=== PATIENT | female | born 1940 | race Caucasian/White ===

== ENCOUNTER 2018-06-19 12:59 | Outpatient (CLI) | payer MEDICARE, OTHER | END 2018-06-19 13:00 | disposition home or self-care (01) | LOC: PC 12:59 | PROVIDERS: ATTEND Nurse Practitioner Adult Health | DX: Z51.5 Encounter for palliative care (principal); G89.3 Neoplasm related pain (acute) (chronic); R53.1 Weakness; C79.2 Secondary malignant neoplasm of skin; C79.82 Secondary malignant neoplasm of genital organs; C68.0 Malignant neoplasm of urethra; Z79.899 Other long term (current) drug therapy; Z79.891 Long term (current) use of opiate analgesic | CPT/HCPCS: 99205 ==

== ENCOUNTER 2018-06-26 12:27 | Outpatient (CLI) | payer MEDICARE, OTHER ==
--- NOTE | 2018-06-26 19:57 | CONSULTATION NOTE ---
Palliative Care Follow Up - Referral Referring Provider: Dr. 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 She is currently receiving pembrolizumab, has recently transitioned [facility] to [facility]. Her original diagnosis was in 07/2014 and was treated at [facility] with surgery 08/24/2014 with anterior extenteration to include ovaries, uterus, fallopian tubes, cervix, bladder and attached urethra. She has a ileal conduit diversion. This was followed by post chemoradiation. She had recurrent disease in her inguinal nodes in 2017, with another round of concurrent chemoradiation. She most recently and [id number] had a focal area of concern on the CT scan, this is resected by Dr. peña, but was negative for cancer. Now she presents yet again with recurrent disease localized in the symphysis pubis area, a large open moist lesion draining at the bridge, she also has tumor invasion of her vulvar and labia. Palliative care seeing patient for pain management, pain is mostly localized into the pubic area, recently started on fentanyl 12 mcg patch, with some improvement of functional status as far as being able to sit move get from sitting to standing. She currently takes oxycodone 5 mg a.m., noon, and 10 at bedtime. Currently feels regimen is adequate. Of note though she has had about a 5 pound weight loss over the last week, with decreased appetite. Patient does live alone, she does have some short-term memory issues, Her daughter know well oversees her care and is assisting with both appointments and reminders for medication management Social History - Living Situation Living arrangement: At home Living Situation: Alone Support System: Patient on [place] [facility] [employer], now is been there for 4 years. She does live on a large 5 acre plot, with increasing difficulty with house maintenance, has multiple financial stressors. Her daughter know well provides most of her oversight and support, patient also has a son. Medications/Allergies - Medications Home Medications: Ambulatory Orders Medication Instructions Recorded Confirmed oxyCODONE [Roxicodone] 1 - 2 tab PO Q4HR PRN 05/15/18 06/26/18 fentaNYL [Fentanyl 12mcg patch] 12 mcg TOP .Q3 DAYS 06/22/18 06/26/18 - Allergies Allergies/Adverse Reactions: Allergies Allergy/AdvReac Type Severity Reaction Status Date / Time Sulfa (Sulfonamide Allergy Unknown Verified 06/05/18 15:19 Antibiotics) Plastic tape Allergy Rash Uncoded 06/05/18 15:19 Review of Systems - Constitutional Constitutional: reports: Fatigue, Poor appetite, Weight loss (94.5 down from last week 100). denies: Fever - Ears, Nose & Throat Ears, Nose & Throat: denies: Dry mouth - Cardiovascular Cardiovascular: reports: Edema (right lower leg), Decr. exercise tolerance - Respiratory Respiratory: denies: Cough - Gastrointestinal Gastrointestinal: reports: Poor appetite, Early satiety. denies: Constipation, Nausea - Genitourinary Genitourinary: reports: Other (ileostomy) - Musculoskeletal Musculoskeletal: reports: Muscle weakness - Integumentary Integumentary: reports: Other (malignant tumor secondary to skin mets over pubis area) - Neurological Neurological: reports: General weakness, Memory problems - Psychiatric Psychiatric: denies: Depression, Anxiety - Hematologic/Lymphatic Hematologic/Lymphatic: denies: Recurrent infections - All Other Systems All Other Systems: reports: Reviewed and negative Physical Exam - Vital Signs Pulse Rate: 96 Respiratory Rate: 18 Blood Pressure: 122/62 (standing 112/72) - Physical Exam General Appearance: positive: No acute distress, Alert Eyes Bilateral: positive: Normal inspection ENT: positive: No signs of dehydration Neck: positive: No JVD, Trachea midline Cardiovascular: positive: Regular rate & rhythm Respiratory: positive: Diminished in bases. negative: Wheezes, Rales, Rhonchi Abdomen: positive: Soft, Other (concave) Skin: positive: Dryness, Other Extremities: positive: Pedal edema Neurologic/Psychiatric: positive: Mood/affect nml, Disoriented to time, Weakness Palliative Care - POLST Patient has POLST: No Pain: Pain improved, Location (Patient on fentanyl 12 mcg patch, with oxycodone 1-2 tabs for breakthrough pain every 4 hours as needed is using about 20 mg total and 24 hours. Patient does not notice an acute relief, but reports things are improving, daughter observes patient has had significant improvement as far as seems less distressed, less pain behaviors, and somewhat clear.) Tiredness/Fatigue: Moderate (4-6) Drowsiness/Sedation: Comment (sleeps 12 hours at night) Nausea: None Depression: None Anxiety: None Dyspnea: None Anorexia: Moderate (4-6) Constipation: No Feelings of wellbeing/Perceived Quality of Life: Fair, Acceptable Performance Status: Patient is ambulatory around her home, able to attend her ADLs and manage her own ostomy. Does admit to more fatigue, daughter does support her as far as IADLs. Patient needing more assistance with transportation. - Palliative Care Discussion: Patient presents is fairly pragmatic, does intertwine much storytelling in her answers. Very bright and conversant, do understand stage IV disease, but unclear if have recognized the seriousness of her illness. 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 Agreed would take advanced care planning documents and review, review her old document, and will put together information for future planning. Her experiences around end of life, her significant other who passed several years ago, did receive hospice support. 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 She is currently receiving immunotherapy, her disease is mainly localized in the symphysis pubis area with involvement of her vulvar and labia. Patient with some improvement in her pain management, palliative care to continue to provide support with focus on pain and quality of life issues. Recommendations/Counseling Done: 1. Pain of neoplastic origin. Patient's pain has improved, as far as decreased discomfort with sitting, able to move easier, decrease in intensity in pubic area. Will continue on 12 mcg patch, using oxycodone for breakthrough pain. Patient and daughter in agreement with this at this point in time. Will contact me if escalates. 2. Generalized weakness patient does have balance issues, has limited financial resources, has not heard from [facility] will go ahead and follow-up. 3. Malignant wound in symphysis pubis area. Consult with prescription benefit specialist, patient currently managing with disposable underwear, drainage actually is clear intermittently with some bleeding. Wound on examination act ually appears to have shrunk some as far as contours. Instructed continue with gentle cleansing, management of exudate as currently doing, if worsens will follow up with prescription benefit specialist. 4. Weight loss. Patient on immunotherapy, dexamethasone contraindicated. Patient is actually fairly surprised.Counseling provided regarding need to increase calorie intake, patient eats "organically". Reviewed some strategies, may need referral to dietitian if continue problematic. 4. Advanced care planning. Initiated conversation, will take packet evaluate current status and create documents as indicated. Time Spent: 60 minutes with getting 50% of this done in counseling regarding pain and symptom management, follow-up with resources for transportation, and anticipa tory guidance and introduction of advanced care planning.
== END 2018-06-26 12:28 | disposition home or self-care (01) ==
LOC: PC 12:27
PROVIDERS: ATTEND Nurse Practitioner Adult Health
DX: Z51.5 Encounter for palliative care (principal); G89.3 Neoplasm related pain (acute) (chronic); C68.0 Malignant neoplasm of urethra; C79.82 Secondary malignant neoplasm of genital organs; C79.2 Secondary malignant neoplasm of skin; C78.00 Secondary malignant neoplasm of unspecified lung; R53.1 Weakness; R26.89 Other abnormalities of gait and mobility; R63.4 Abnormal weight loss; Z79.899 Other long term (current) drug therapy; Z79.891 Long term (current) use of opiate analgesic
CPT/HCPCS: 99215

== ENCOUNTER 2018-07-11 10:58 | Outpatient (CLI) | payer MEDICARE, OTHER ==
--- NOTE | 2018-07-11 18:02 | CONSULTATION NOTE ---
Palliative Care Follow Up - Referral Referring Provider: Dr. Morelia Castro Time of Visit: 1377-2440 Referral setting: [facility] [place] Referral Reason: Pain of neoplastic origin/Goals of care - Information Sources Records reviewed: Previous records reviewed History/Review of Systems obtained from: Patient, Family (daughter Rick) Exam limitations: Clinical condition (patient with short term memory issues) - History of Present Illness Update Brief HPI Update: This is a 78-year-old woman who has recurrent stage IV urothelial carcinoma with skin metastases to the symphysis pubis area, labia/vaginal mass, and RUL lung lesion. Please see 06/26 note for more complete history. She is currently receiving Prembrolizumab, And is here today for treatment. We had agreed to meet at her treatment appointment to further complete her advanced directives and follow-up on her pain management. She is currently on fentanyl 12 mcg patch, her discomfort is mostly localized to her blank-region, has been taking increased oxycodone of about 25 mg in 24 hours. Trying to tease out if this is by habit, and not by need. After much discussi on, did agree given she is more clear on the fentanyl versus oxycodone, would increase her patch to 25 mcg, she will trial this by adding second 12 mcg patch. And use the oxycodone only for breakthrough pain. Her daughter will monitor this over the next few days, and if effective and not over sedating, will obtain 25 mcg patch prescription which was provided. Other concern is she has had ongoing weight loss, she currently today presents at 90.8 pounds, last week was 94.5, week before 100. She reports just no appetite, denies nausea, because of ileostomy is drinking fluids, and has difficulty identifying specific barriers to intake. She does live alone, is isolated, and with poor recall related to mild cognitive deficits. Social History - Living Situation Living arrangement: At home Living Situation: Alone Support System: Patient does live alone, her partner had passed several years ago, she does live on a large estate. She has been waiting now to get into [facility], she does see living in an assisted living area would be of much benefit. She has many financial stressors, and this is not possible currently . Her daugther Rick, lives on [address] and tracks her pretty closely, she is changing the patches. Medications/Allergies - Medications Home Medications: Ambulatory Orders Medication Instructions Recorded Confirmed oxyCODONE [Roxicodone] 5 - 10 mg PO Q4HR PRN 05/15/18 06/26/18 fentaNYL [Fentanyl 12mcg patch] 25 mcg TOP .Q3 DAYS 06/22/18 07/11/18 - Allergies Allergies/Adverse Reactions: Allergies Allergy/AdvReac Type Severity Reaction Status Date / Time Sulfa (Sulfonamide Allergy Unknown Verified 06/05/18 15:19 Antibiotics) Plastic tape Allergy Rash Uncoded 06/05/18 15:19 Review of Systems - Constitutional Constitutional: reports: Fatigue, Poor appetite, Weight loss. denies: Fever - Cardiovascular Cardiovascular: reports: Decr. exercise tolerance - Respiratory Respiratory: reports: SOB with exertion. denies: Cough - Gastrointestinal Gastrointestinal: denies: Constipation (goes daily; not using any medication) - Musculoskeletal Musculoskeletal: reports: Muscle weakness - Integumentary Integumentary: reports: Dryness, Other (Patient reports no change in her lesions, may be some shrinkage of masses in the vaginal/labia area. Has fluctu ating drainage, from mucus to serosanguineous. Is managing with cleansing and depends.) - Neurological Neurological: reports: General weakness, Memory problems - Psychiatric Psychiatric: denies: Depression, Anxiety - All Other Systems All Other Systems: reports: Reviewed and negative Physical Exam - Vital Signs Temperature: 37.2 C Pulse Rate: 79 Respiratory Rate: 18 Blood Pressure: 123/74 - Physical Exam Eyes Bilateral: positive: Normal inspection Respiratory: positive: No respiratory distress Neurologic/Psychiatric: positive: Oriented x3, Mood/affect nml Palliative Care - POLST Patient has POLST: Yes POLST Status: DNR, Selective Treatment Pain: Pain worsening, Location (see hpi) Tiredness/Fatigue: Moderate (4-6) Drowsiness/Sedation: Mild (1-3) Nausea: None Depression: None Anxiety: None Dyspnea: Mild (1-3) Anorexia: Severe (7-10), 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 Discussed in the context of the role of the healthcare proxy, would recommend updating. She did put Rick NicFerguson [phone] as primary. Form completed, but awaiting notary, will get done at bank or bring back at next appointment. Further exploration regarding goals of care, to complete the POLST. Patient is fairly pragmatic and practical, currently enjoys her current quality of life, but concerned about if she were to be dependent or requiring more assistance this would change this for her. She would like to focus on quality of life, this includes continue with treatment as long as effective, spending time with family, we did discuss end-of-life wishes. She does recognize given that she lives alone, that this may be more complicated to have hospice or at home. That would be her ideal, but recognizes this may be dictated by available resources. She selected do not attempt resuscitation/allow natural as well as selective treatment with the goals to avoid burdensome measures, but would at this point except treatment for reversible conditions. If patient were unable to make decisions for herself, she does feel her daughter would understand what her values and wishes were. They do include her son, and keeping him up to date. Her life continues to be challenged by her isolation, financial stressors, and current recurrent disease. They have not heard from [facility], will reach out and contact again. Results - Lab Results Lab results reviewed: Yes Impression and Recommendations - Palliative Care Impression: This is a 78-year-old woman with recurrent stage IV urothelial cancer with skin and lung metastases. She is currently receiving immunotherapy, her goal is to manage her current disease. Patient with some escalation of pain and discomfort, and ongoing weight loss, palliative care to continue provide support and counseling for advanced directives. Recommendations/Counseling Done: 1. Pain of neoplastic origin. Will increase fentanyl to 212 mcg patches, patient will put away oxycodone as not to get confused and take it reflexively. We did discuss in the context of pain control, can use it for breakthrough pain. Instructed if sedated, to remove second patch, if better pain control to go ahead and fill Ventolin 25 mcg patch prescription #10 patches. Agreement to have a verbal check-in next week, and schedule next appointment with chemotherapy second to transportation and energy level. Patient does know can have home visit if indicated or requested for symptom management. 2. Weight loss. Unfortunately patient cannot use steroids secondary to her immunotherapy. Given patient's poor prescription coverage, I am hesitant to add Megace. She will be counseled by dietitian, reviewed some strategies with patient. Counseling provided to see this as more prescriptive versus organic, intervention with frequent small meals every 2 hours, and increasing caloric int johnnie by adding calories/protein powder to fluids. 3. Advanced care planning. We did complete the [facility], patient has been instructed to put on refrigerator as well as copies given to daughter and pa tient to carry with them. Will get on record here at the hospital. Patient updated health proxy to delineate no well as first and her son as second. Will get that notarized and and records with next visit. Contacted [facility] again. Daughter does have phone numbers and forms for paratransit and seeing her transportation. Time Spent: 60 minutes with greater than 50% of this done in counseling regarding advanced care planning, completing the P[facility], waiting and counseling regarding pain and anorexia as well as anticipatory guidance
== END 2018-07-11 10:59 | disposition home or self-care (01) ==
LOC: PC 10:58
PROVIDERS: ATTEND Nurse Practitioner Adult Health
DX: Z51.5 Encounter for palliative care (principal); G89.3 Neoplasm related pain (acute) (chronic); R63.4 Abnormal weight loss; R63.0 Anorexia; R41.89 Other symptoms and signs involving cognitive functions and awareness; C68.9 Malignant neoplasm of urinary organ, unspecified; C79.82 Secondary malignant neoplasm of genital organs; C79.2 Secondary malignant neoplasm of skin; C78.00 Secondary malignant neoplasm of unspecified lung; Z66 Do not resuscitate; Z79.899 Other long term (current) drug therapy; Z79.891 Long term (current) use of opiate analgesic; Z93.2 Ileostomy status
CPT/HCPCS: 99215

== ENCOUNTER 2018-07-31 09:55 | Outpatient (CLI) | payer MEDICARE, OTHER ==
--- NOTE | 2018-07-31 17:55 | CONSULTATION NOTE ---
Palliative Care Follow Up - Referral Referring Provider: Dr. 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 She is currently receiving pembrolizumab, her original diagnosis was 07/2014, and was treated with surgery 08/24/2014 with anterior exenteration to include ovaries, uterus, fallopian tubes, cervix, bladder and attached urethra. She has a ileal conduit diversion. This was followed by post chemoradiation, she had recurrent disease in her inguinal nodes in 2016, with another round of concurrent chemoradiation. She most recently on 11/2017 had a focal area of concern on the CT scan, this is resected by Dr. Valle, but was negative for cancer. Now she presents yet again with recurrent disease localized in the symphysis pubis area, with a large open moist lesion draining at the bridge, and invasion of her vulvar area and labia. Patient on exam today of the blank-area, actually it does appear to be reducing in size. Of concern she does report several days of bright red blood in bleeding, from the moist area part of the tumor. She reports this has resolved in the last 2448 hrs. No evidence of serosanguineous or bleeding on exam. She is managing the drainage with depends, this puts less pressure on the area and manages the moisture. She reports that drainage is fluctuating. On exam today it does appear much improved. The other concern has been her right lower extremity, she does have venous congestion area of tenderness, almost looks like a phlebitis but is not bright red or tender. They had started some compression with relief of the discomfort and swelling has improved as well. Palliative care is providing support for pain and symptom management. She is currently on fentanyl 25 mcgs, but is still requiring oral oxycodone of a total of 30 mg. She has had no adverse effects of sedation or increased confusion. She has some minor constipation. Her other significant symptom has been anorexia, though this is been a lifelong problem it has been exacerbated. She has not had weight loss since the last weighing about 2 weeks ago, but remains quite thin and cachectic. She denies any nausea, GERD, has some early satiety, and no taste changes, but is anorexic Social History - Living Situation Living arrangement: At home Living Situation: Alone Support System: Patient is supported by her daughter know well who checks on her frequently, but patient is managing most of her ADLs independently. Daughter does come and change her patch every 3 days and monitor his response. They have been working on trying to get [facility] in place. Medications/Allergies - Medications Home Medications: Ambulatory Orders Medication Instructions Recorded Confirmed oxyCODONE [Roxicodone] 5 - 10 mg PO Q4HR PRN 05/15/18 08/01/18 fentaNYL [Fentanyl 12mcg patch] 37.5 mcg TOP .Q3 DAYS 06/22/18 08/01/18 - Allergies Allergies/Adverse Reactions: Allergies Allergy/AdvReac Type Severity Reaction Status Date / Time Sulfa (Sulfonamide Allergy Unknown Verified 06/05/18 15:19 Antibiotics) Plastic tape Allergy Rash Uncoded 06/05/18 15:19 Review of Systems - Constitutional Constitutional: reports: Fatigue, Poor appetite, Weight loss (patient improved this week was 07/11 90.8; today 92.7; but down from 100 of a few weeks ago). denies: Fever, Chills - Eyes Eyes: reports: Vision loss, Corrective lenses - Ears, Nose & Throat Ears, Nose & Throat: reports: Hearing loss - Cardiovascular Cardiovascular: reports: Decr. exercise tolerance. denies: Chest pain - Respiratory Respiratory: denies: Cough, SOB at rest - Gastrointestinal Gastrointestinal: reports: Constipation (reports firm stool and with effort; going daily), Poor appetite, Early satiety. denies: Nausea - Genitourinary Genitourinary: reports: Other (has urostomy) - Musculoskeletal Musculoskeletal: reports: Muscle weakness - Neurological Neurological: reports: General weakness, Memory problems (forgetfulness and STM issues; no dementia) - Psychiatric Psychiatric: denies: Depression, Anxiety - Hematologic/Lymphatic Hematologic/Lymphatic: reports: Anemia (patient had several days of heavy bleeding from tumor area; since resolved; no evidence on exam but has had drop in hct) - All Other Systems All Other Systems: reports: Reviewed and negative Physical Exam - Vital Signs Temperature: 37.2 C Pulse Rate: 76 Respiratory Rate: 18 Blood Pressure: 107/62 - Physical Exam General Appearance: positive: No acute distress Eyes Bilateral: positive: Normal inspection ENT: negative: Oral lesions Neck: positive: No JVD, Trachea midline Cardiovascular: positive: Regular rate & rhythm Respiratory: positive: Breath sounds nml Abdomen: positive: Non-tender, Other (concave; urostomy with dark raj urine) Skin: positive: Pallor, Other (open area of tumor appears to have decreased; dull red vs bright angry; serous drainage; "bubbles" of cluster tumor in labia folds not open; vaginal/labial swelling still prominent; area very painful to touch but noted response to treatment;) Extremities: positive: Other (right leg with swelling up to knee area 1-2+; in ner knee dull purple venous congested area 2 x 3 cm near surface tender to touch; congested vein in calf area; no red hot area nor appearance of DVT; has been r/o before; more comfortable with wrappin) Neurologic/Psychiatric: positive: Oriented x3, Mood/affect nml, Weakness Palliative Care - POLST Patient has POLST: Yes POLST Status: DNR, Selective Treatment (notary no present to complete DPOA; selected damam[facility]out[facility]) Pain: Pain improved, Location (Pain is located in the symphysis pubic area radiating through Rogers area; more tender to touch with any pressure including sitting; needs to sit with her pelvis tipped forward; new area of intensity is in her right lower leg, this is improved with compression management. She currently is on fentanyl 25 mcg patch, this did improve her pain but still rates her pain at a 5 and 6, and is still taking about 30 mg of oxycodone in addition with discomfort. Patient has not shown any untoward effects such as sedation or increased confusion) Tiredness/Fatigue: Moderate (4-6) Drowsiness/Sedation: Mild (1-3) Nausea: None Depression: None Anxiety: None Dyspnea: None Anorexia: Severe (7-10) (Patient reports absolutely no hunger, and review with daughter this is not a new symptom but has worsened somewhat with her cancer and cancer treatment) Sleep: Sleeps well Constipation: Yes, Opoid induced, Intermittent constipation, Comment (Experiencing more solid stools with more difficulty evacuation; has not been needing any bowel meds, she has had urgency and incontinence since her original surgery) Feelings of wellbeing/Perceived Quality of Life: Fair, Acceptable Performance Status: Patient does live home alone, she is able to attend her own ADLs and household tasks. They are on a waiting list for [place]. She does have living a fairly large home that has been somewhat overwhelming to be able to take care of. She is ambulatory in her home. - Palliative Care Discussion: Patient remains quite pragmatic in her approach to her cancer and treatment. She denies any distress, she is getting somewhat overwhelmed at times with managing her multiple stressors related to her recurrent disease, finances, and limitations. Unfortunately notary not available today, they do have the POA form with Rick Rand [phone] as primary, they will follow through and get this done at the bank. She does have a [facility] completed as DNAR/selected treatment. Results - Lab Results Lab results reviewed: Yes Lab and Imaging Results: Patient is a little bit dehydrated, this is confirmed by her labs as well as her nutritional status remains compromised with her proteins dropping to 5.7 and alb umin at 3.0; her hemoglobin went from 12.4-11.0; hematocrit 32.6 Impression and Recommendations - Palliative Care Impression: This is a 78-year-old woman with recurrent stage IV urethral cancer with skin and lung metastases, vaginal and labia mass. She is currently receiving immunotherapy, with a goal to manage her current disease. She does present with some evidence of response with an improved visual observation of open moist area reduced, decrease in redness and inflammation, mass-effect seems somewhat more contained in the vaginal/labial area. Patient continues to struggle with anorexia, pain is improved but still not adequately controlled, palliative care providing support for pain and symptom management and coordination of care Recommendations/Counseling Done: 1. Pain of neoplastic origin. Will increase the fentanyl to 37.5 mcg. Patient does have one 12 mcg patch left, they will added today, When they applied a 25 mcg patch. Prescription provided for 10 fentanyl patches of 37.5 mcg. Counseling provided again regarding goal of long-acting fentanyl to be able to minimize oxycodone use, patient though has been reflective that the current dosing of her oxycodone is what she needs to keep her pain controlled, has not had any adverse effects. Her daughter is monitoring closely. 2. Anorexia. Patient has not had any weight loss in the last 2 weeks, suspect decreased proteins is multifactorial with weight loss, and ongoing drainage from her tumor site. In review of her intake, and approaches for increasing calories, there is room for improvement. Counseling provided to both daughter and patient, daughter does get frustrated as patient has early satiety and eats very small amounts. They will add more supplement. Patient also encouraged to push fluids, requested to substitute protein and calorie fluids for water. Reviewed labs and indications to reinforce concerns. 3. Lymphedema of right lower extremity. Patient with mild swelling but significant tenderness, no bright red hot tender areas, is relieved with compression. Counseling provided regarding wrapping and management, as well as increased signs or symptoms of concern for DVT. 4. Urethral stage IV carcinoma with metastatic disease. In exam and can confirmed with daughter, does appear to be responding to immunotherapy. 5. Advanced care planning. PAM ST in place, will follow up and get D POA notarized and return copy at next visit. Continue to focus on goals of care. Encouraged to follow up on [facility], patient remains quite fragile, but goal is for her to maintain her independence. Patient with significant financial stressors, will follow up on concern for co-pay at [employer] for fentanyl, was told provider can submit preauth for reimbursement. Time Spent: 60 minutes with gated 50% of this done in counseling regarding pain and symptom management, nutritional dehydration as well as anticipatory guidance and coordination of care
== END 2018-07-31 09:56 | disposition home or self-care (01) ==
LOC: PC 09:55
PROVIDERS: ATTEND Nurse Practitioner Adult Health
DX: Z51.5 Encounter for palliative care (principal); G89.3 Neoplasm related pain (acute) (chronic); R63.0 Anorexia; I89.0 Lymphedema, not elsewhere classified; E86.0 Dehydration; D50.0 Iron deficiency anemia secondary to blood loss (chronic); R64 Cachexia; K59.03 Drug induced constipation; T40.2X5D Adverse effect of other opioids, subsequent encounter; C68.0 Malignant neoplasm of urethra; C78.01 Secondary malignant neoplasm of right lung; C79.82 Secondary malignant neoplasm of genital organs; I87.8 Other specified disorders of veins; Z79.891 Long term (current) use of opiate analgesic; Z79.899 Other long term (current) drug therapy; Z96.0 Presence of urogenital implants; Z66 Do not resuscitate; Z59.9 Problem related to housing and economic circumstances, unspecified
CPT/HCPCS: 99215

== ENCOUNTER 2018-08-21 09:45 | Outpatient (CLI) | payer MEDICARE, OTHER ==
--- NOTE | 2018-08-21 11:49 | CONSULTATION NOTE ---
Palliative Care Follow Up - Referral Referring Provider: Dr. 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 She is currently on pembrolizumab. Patient is scheduled for a restaging PET CT scan on 09/05 and follow-up with Dr. Castro on 09/07. The current plan is to evaluate for progression, and possibly add gemcitabine. Her original diagnosis was 07/2014 and was treated with surgery 08/24/2014 with anterior exenteration to include ovaries, uterus, fallopian tubes, cervix, bladder and attached urethra. She has an ileal conduit diversion. This was followed by post chemoradiation, she had recurrent disease in her inguinal nodes in 2017, with another round of concurrent chemoradiation. Patient on exam today of blank-area actually does appear to continue to decrease in size, her vaginal/labia are diminishing, she has small swellings between the lips of the labia, these have decreased in size, the open wound area does have a deeper crater on the right about 3 x 4 cm, but the overall surface area of open draining wound has diminished in size and is filling in. She still continues to have intermittent bleeding, but less in volume, but continues with significant drainage that does soak her depends, of yellow serous with some rest color secondary to bleeding. Of note her right thigh and lower extremity, swelling do seem to have diminished dramatically, she does have a wrap today, but only has trace pedal edema in her ankle and foot. This does still seem to be an area of significant discomfort, and is having her daughter monitor and wrap for her. Palliative care is providing support for pain and symptom management. She is currently on fentanyl 25+12 mcg patch for 37 total. She is only started this this last week and a half secondary to difficulties with insurance, she continues to use oxycodone 5 mg 2 tabs about every 4-6 hours for breakthrough pain. She does live by herself, had attempted to get home health out there, there was some difficulty secondary to patient's memory and patient processing to continue to drive. Patient has been instructed several times not to drive, she is significantly forgetful, short-term memory issues, is very cachectic and weak, on high doses of opioids and now after both her family, and my reiteration does understand she is not to drive and will be selling her car as well. She does live by herself, is quite isolated, and will need further social work therapist support, as well as home health to monitor her pain, drainage, and safety in the home setting. Of note both her mother who of Alzheimer's, and her sister who has moderate to severe Alzheimer's as part of her family history. Patient has very little insight into her ongoing cognitive decline. This is been very difficult as far as managing her care needs, and negotiating with her daughter, her daughter is aware of concerns and does check on her frequently. The are aware eventually they are going to need a longer term plan. Social History - Living Situation Living arrangement: At home Living Situation: Alone Support System: Patient has always been fiercely independent, but she perceives she is doing versus what she is doing are somewhat of a disconnect per daughter's report. Concern is been patient prepares food, and does not throw out when it is , is eating only small amounts. Needs frequent reminding, but has been able to manage her own ADLs and urostomy at this point. I suspect she could use support in bathing. Medications/Allergies - Medications Home Medications: Ambulatory Orders Medication Instructions Recorded Confirmed oxyCODONE [Roxicodone] 5 - 10 mg PO Q4HR PRN 05/15/18 08/14/18 fentaNYL [Fentanyl 12mcg patch] 37.5 mcg TOP .Q3 DAYS 06/22/18 08/14/18 - Allergies Allergies/Adverse Reactions: Allergies Allergy/AdvReac Type Severity Reaction Status Date / Time Sulfa (Sulfonamide Allergy Unknown Verified 06/05/18 15:19 Antibiotics) Plastic tape Allergy Rash Uncoded 06/05/18 15:19 Review of Systems - Constitutional Constitutional: reports: Fatigue, Poor appetite, Weight loss (no weight loss this week at 92.9). denies: Fever, Chills - Eyes Eyes: reports: Vision loss, Corrective lenses - Cardiovascular Cardiovascular: reports: Exertional dyspnea. denies: Chest pain - Respiratory Respiratory: reports: SOB with exertion. denies: Orthopnea, SOB at rest - Gastrointestinal Gastrointestinal: reports: Constipation, Poor appetite, Early satiety. denies: Nausea - Genitourinary Genitourinary: reports: Other (urostomy; dark raj urine with few shreds in bag) - Musculoskeletal Musculoskeletal: reports: Muscle weakness - Integumentary Integumentary: reports: Dryness - Neurological Neurological: reports: General weakness, Memory problems - Hematologic/Lymphatic Hematologic/Lymphatic: reports: Anemia (11.5) - All Other Systems All Other Systems: reports: Reviewed and negative Physical Exam - Physical Exam General Appearance: positive: Alert Eyes Bilateral: positive: Normal inspection ENT: negative: Oral lesions Neck: positive: No JVD, Trachea midline Cardiovascular: positive: Regular rate & rhythm Respiratory: positive: Breath sounds nml, Diminished in bases Abdomen: positive: Abnml bowel sounds (decreased bowel tones), Other (concave; very thin/cachetic) Skin: positive: Dryness Extremities: positive: Pedal edema (right leg swelling has dramatically decreased; has pressure wrap on; trace pedal edema in ankles bilat) Neurologic/Psychiatric: positive: Mood/affect nml, Disoriented to time, Other (easily distracted; difficulty following conversation; needing to be refocused for questions; not always understanding questions and circutious in answers) Palliative Care - POLST Patient has POLST: Yes POLST Status: DNR, Selective Treatment Pain: Pain unchanged, Location (Patient currently on 25+12 mcg patch of fentanyl secondary to insurance issues unable to get 37.5 covered. Patient is taking oxycodone 2 tablets of 5 oxycodone about 4-5 times a day, unclear how accurate this is. Did discuss with both patient and daughter given patient's memory issues, if could do a pill count to be more accurate. Patient may benefit from increased patch dose of 50 mcg, but do not want to do this without some "hard data". Pain is mostly located in the vaginal area and right thigh area, with the swelling decreased is having less pain and tenderness.), Severity (7/10) Tiredness/Fatigue: Moderate (4-6) Drowsiness/Sedation: Moderate (4-6) Nausea: None Depression: Mild (1-3) Anxiety: Mild (1-3) Dyspnea: Moderate (4-6) Anorexia: Moderate (4-6) Sleep: Sleeps well Constipation: Yes, Opoid induced, Unmanaged Feelings of wellbeing/Perceived Quality of Life: Fair, Acceptable, No change Performance Status: Patient reports she is up on her feet all day secondary to pain, cannot really sit. She does tend to be "dizzy". She does report sleeping 10-12 hours a day. She is bathing independently, though does sound like this is somewhat difficult. She is having to manage changing her depends on a regular basis secondary to drainage of her metastatic lesions to her pelvic region - Palliative Care Discussion: Very long and extensive conversation again regarding patient's homebound status, she is not to be driving, this has been ongoing conversation and came to ahead yesterday with home health nursing admit. Son is a police superintendent, did discuss at length with her she is not to drive, she would be at fault if she were in a accident, and currently she is not safe. It is a taxing considerable effort for her to leave the home, she has had weight loss, she is ambulating short distances, but is quite cachectic and has had muscle mass loss. Patient's sister who has Alzheimer's, has been diagnosed with lung cancer, and probably has weeks to months to live. This brought up conversation again about her cancer, she has little insight in the context of that it is stage IV, we did review he had again that she is being treated for quality of life and quantity, but it is not a curable situation. In this context she does have a PAM ST in place, and we did complete her D POA which designates her daughter Rick Atkins as primary at [phone] and her son Esa Cabrera as backup at [phone]. This was notarized today. Copies were put into the IM. We did discuss in the context of end-of-life planning, things that she wants to resolve, she is awaiting transition to [place] housing, will need to move anyway, encouraged to start some of those tasks that are important to her while she currently has the energy in the wherewithal to participate, daughter is very supportive of this and encouraging as well. We did discuss also what would be of helpful from Dr. Castro, she does want to be part of the conversation and appreciates factual information. Of note though patient has trouble holding on or processing, and needs to be reminded of information she has received before frequently. She will be getting staging information this next month, this may be able to inform her ongoing plan and need for support. Results - Lab Results Lab results reviewed: Yes Lab and Imaging Results: Daughter reports patient was having increased confusion particularly in the last 24-48 hours, concerned she has not been eating or drinking. Did have a BMP drawn, patient does have a history of hyponatremia, her sodium was 132 today. She has been encouraged to increase her fluids. Impression and Recommendations - Palliative Care Impression: This is a 78-year-old woman with recurrent stage IV urothelial cancer with metastases to the pubis symphysis, labia/vaginal tumor, and lung metastases. She is currently receiving immunotherapy, with the goal to manage her current disease. She is to get restaged /. He does present with some evidence of r esponse of further improved visual observation of her blank-area. Patient continues to struggle with anorexia, pain, constipation, ongoing cognitive and some functional decline. Palliative care providing support for pain and symptom management and coordination of care. Recommendations/Counseling Done: 1. Pain of neoplastic origin. Unfortunately secondary insurance issue patient is only been on the increased fentanyl 37.5 mcg which is a 25 and 12 mcg patch, for little less than a week. She is taking oxycodone to 5 mg tabs 4-5 times a day for adequate pain control, though continues to report its manageable but still at a severity of 7 out of 10. Did discuss in the context of patient's forgetfulness, need to have more accurate account of her oxycodone use, daughter will do some pill counts, and will enlist home health as well. Counseling again provided regarding goal of long-acting fentanyl to minimize oxycodone use, her daughter is monitoring closely, does do the patch change. Patient does get confused at times and takes them off, or takes 1 of them off. They do know to replace it and not to use the same patch over. We will continue to evaluate if patient would benefit from increase in patch, will need more information and data prior to doing this. 2. Constipation. Patient had forgotten to add the MiraLAX, she has having forced stools, counseling provided that diet changes most likely or not going to be adequate given her high doses of opioids. Patient has been instructed to take MiraLAX daily, 1 capful. May need to switch to [id number] if patient unable to remember or comply. 3. Anorexia. Patient has remained stable again this week, suspect decreased proteins again is multifactorial with weight loss and ongoing drainage from her tumor site. Patient has somewhat "magical thinking" about the volume and what she is eating, daughter confirms that it is just small amounts and sometimes she forgets to eat. Counseling provided again as far as strategies to increase intake, encouraged more use of protein shakes. Reviewed labs and indications to reinforce concerns. 4. Lymphedema of right lower extremity. Patient's swelling has improved dramatically with wrapping, as well as discomfort improved. Counseling with daughter will continue to weigh benefits and burdens of wrapping as needed, no current signs or symptoms for DVT, or just mild phlebitis at this point. 5. Urothelial stage IV carcinoma with metastatic disease. In examination of blank-area, tumor metastases does seem to be decreasing yet again from last exam. Patient to get restaged 1/3 with possible changes to treatment. Daughter is concerned of adding to her symptom burden, particularly since patient lives alone. 6. Advanced care planning. Alisha Thompson was notarized today. Discussion regarding goals of care, things that are important currently, reinforced information regarding Stage IV dx, palliative intent of treatment. Discussed at length need for better support, patient with limited financial support. Awaiting transition to [facility], unclear where she is on the list. [id number]. Patient is homebound secondary to considerable and taxing effort for the patient leave the home secondary to pain, weight loss, generalized weakness and fatigue. Home health RN to evaluate and track pain, assist with nutrition/fluid status, safety around food expiration, assist with constipation management, home safety, and monitor side effects of treatment. [employer] for long- term care planning, social work therapist resources, [place] P[place] application, would recommend for palliative care volunteer support. Patient is quite isolated, will need assistance to figure out groceries, and companionship. Please note contact is to be with daughter for setting up visits, patient is quite forgetful. CC: Home Health Time Spent: 60 minutes with good and 50% of this done in counseling regarding safety, pain and symptom management, coordination of care, completion of D POA, and anticipatory guidance coordination of care with home health.
== END 2018-08-21 09:46 | disposition home or self-care (01) ==
LOC: PC 09:45
PROVIDERS: ATTEND Nurse Practitioner Adult Health
DX: Z51.5 Encounter for palliative care (principal); G89.3 Neoplasm related pain (acute) (chronic); T40.4X6A Underdosing of other synthetic narcotics, initial encounter; Z91.138 Patient's unintentional underdosing of medication regimen for other reason; C79.82 Secondary malignant neoplasm of genital organs; C68.9 Malignant neoplasm of urinary organ, unspecified; C79.2 Secondary malignant neoplasm of skin; C78.00 Secondary malignant neoplasm of unspecified lung; K59.03 Drug induced constipation; T40.2X5A Adverse effect of other opioids, initial encounter; T47.3X6A Underdosing of saline and osmotic laxatives, initial encounter; Z91.130 Patient's unintentional underdosing of medication regimen due to age-related debility; Y92.009 Unspecified place in unspecified non-institutional (private) residence as the place of occurrence of the external cause; R63.0 Anorexia; I89.0 Lymphedema, not elsewhere classified; R53.1 Weakness; R53.83 Other fatigue; R41.0 Disorientation, unspecified; R41.3 Other amnesia; Z60.2 Problems related to living alone; Z82.0 Family history of epilepsy and other diseases of the nervous system; Z93.6 Other artificial openings of urinary tract status; Z66 Do not resuscitate; Z79.899 Other long term (current) drug therapy; Z79.891 Long term (current) use of opiate analgesic
CPT/HCPCS: 99215

== ENCOUNTER 2018-09-11 09:54 | Outpatient (CLI) | payer MEDICARE, OTHER ==
--- NOTE | 2018-09-11 20:45 | CONSULTATION NOTE ---
Palliative Care Follow Up - Referral Referring Provider: Dr. Morelia Castro Time of Visit: [id number] [place] [facility] [place] Reason: Pain of neoplastic origin/Urothelial cancer - Information Sources Records reviewed: RN notes reviewed, Previous records reviewed History/Review of Systems obtained from: Patient, Family (Son Esa present for visit) Exam limitations: Clinical condition (patient with mild dementia; STM issues) - History of Present Illness Update Brief HPI Update: This is a 78-year-old woman who has stage IV urothelial cancer with recurrence in the symphysis pubis, recently completed 6 cycles of pembrolizumab. She had a restaging PET scan, unfortunately that showed further progression with increased hypermetabolic soft tissue in the anterior pelvic wall enlarging, and previous abnormalities have now come "confluent". There is also an increased abnormality in the left upper pelvis that involves the distal descending colon. The left upper lobe pulmonary nodules were larger. Patient's pain has been increasing, though on exam of her external area her vaginal/labia and small swellings between the lips of the labia seem to have remained stable. She does have a deep open crater of 3 x 4 cm with open surface of draining wound, drainage is serosanguineous. She reports no recent bleeding. She does not have any smell or symptoms of infection at this point in time. She is also had some lymphedema in her right lower extremity, with some varicose prominence of veins in her calf, this has improved and shows only trace edema in her ankle and foot currently. She has been initiated with home health nursing, this is been of help as far as tracking patient's management of pain at home. Patient continues with fairly severe pain still at 8 out of 10, difficulty holding still or finding a comfortable position other when sleeping. She is using her oxycodone 5-10 mg about 4-5 times a day. She has not had any sedation, has been managing her constipation, and no symptoms of nausea. In the context of conversation regarding her progressive disease, patient was given option of comfort versus ongoing treatment, she has done poorly on chemotherapy in the past, and is nutritionally compromised. Patient though has chosen to at least give a try to systemic therapy. Discussion was had though regarding concerns as daughter is out of town, and has no social support if patient were to have negative reaction to the chemotherapy. Will delay until next week. Social History - Living Situation Living arrangement: At home Living Situation: Alone Support System: Patient lives fairly isolated life, in the big house which she wants to "wrap- up" and finish her affairs. She is now accepting home health to check on her regularly, they are managing the patch while the daughter is traveling. She presents today with her son Esa, who was able to participate in the conversation as well as able to meet with palliative care. Medications/Allergies - Medications Home Medications: Ambulatory Orders Medication Instructions Recorded Confirmed oxyCODONE [Roxicodone] 5 - 10 mg PO Q3HR PRN 05/15/18 09/12/18 fentaNYL [Fentanyl 12mcg patch] 50 mcg TOP .Q3 DAYS 06/22/18 09/12/18 - Allergies Allergies/Adverse Reactions: Allergies Allergy/AdvReac Type Severity Reaction Status Date / Time Sulfa (Sulfonamide Allergy Unknown Verified 06/05/18 15:19 Antibiotics) Plastic tape Allergy Rash Uncoded 06/05/18 15:19 Review of Systems - Constitutional Constitutional: reports: Fatigue, Weakness, Poor appetite, Weight loss. denies: Fever, Chills - Ears, Nose & Throat Ears, Nose & Throat: reports: Dry mouth - Cardiovascular Cardiovascular: reports: Edema (RLL), Decr. exercise tolerance - Respiratory Respiratory: reports: SOB with exertion. denies: Cough, SOB at rest - Gastrointestinal Gastrointestinal: reports: Abdominal pain, Poor appetite, Early satiety. denies: Constipation (reports bowels moving daily), Nausea - Genitourinary Genitourinary: reports: Other (urostomy; occasional hematuria) - Musculoskeletal Musculoskeletal: reports: Muscle weakness - Integumentary Integumentary: reports: Dryness, Other (tumor symphysis pubis) - Neurological Neurological: reports: General weakness, Memory problems. denies: Dizziness - Psychiatric Psychiatric: denies: Depression, Anxiety - Hematologic/Lymphatic Hematologic/Lymphatic: reports: Anemia (HGB 10.7; 32.4 Hct) - All Other Systems All Other Systems: reports: Reviewed and negative Physical Exam - Physical Exam General Appearance: positive: No acute distress, Alert Eyes Bilateral: positive: Normal inspection ENT: positive: No signs of dehydration Neck: positive: No JVD, Trachea midline Cardiovascular: positive: Regular rate & rhythm Respiratory: positive: No respiratory distress Abdomen: positive: Nml bowel sounds, Tenderness Skin: positive: Dryness, Wound (malignant) Extremities: positive: Pedal edema (trace RLL) Neurologic/Psychiatric: positive: Oriented x3 Palliative Care - POLST Patient has POLST: Yes POLST Status: DNR, Selective Treatment Pain: Pain worsening, Location (Pain is fairly intense in severity, mostly located in the pelvic region. Does get some relief with the intermittent oxycodone, most severe time is when on upon awakening after has not taken some oxycodone. Discussion at length regarding needing to titrate up fentanyl. Patient is alone, but has been tolerating increasing doses of oxycodone with alertness, no increase in confusion we will go ahead and give her new prescription for fentanyl 50 mcg patch.) Tiredness/Fatigue: Moderate (4-6) Drowsiness/Sedation: None Nausea: None Depression: None Anxiety: Mild (1-3) Dyspnea: Mild (1-3) (with exertion) Anorexia: Moderate (4-6) Sleep: Sleeps well Constipation: Yes, Opoid induced, Managed Feelings of wellbeing/Perceived Quality of Life: Fair, Acceptable Performance Status: Patient would benefit from home health aide, declined if she is somewhat of a introvert and having difficulty with people coming in and out of her home. She is can have OT though to room. Patient is ambulatory, is not comfortable si tting related to pain. I would put her at a PPS of 60% Results - Lab Results Lab results reviewed: Yes Lab and Imaging Results: Patient remains anemic, hemoglobin 10.7 hematocrit 32.4 with an elevated platelet count of 501. She does have a total protein of 5.8 and albumin 2.9 Impression and Recommendations - Palliative Care Impression: This is a 78-year-old woman with recurrent stage IV urothelial cancer with metastases to the pubic symphysis, and lung. She has progressed despite 6 rounds of immunotherapy, is choosing at this point to trial gemcitabine/chemotherapy. Patient continues with high symptom burden of progressive pain, anorexia, and fatigue. Palliative care continue provide support while patient receiving current palliative treatment, transition to hospice when appropriate Recommendations/Counseling Done: 1. Pain of neoplastic origin. Patient's pain currently progressing, only moderately controlled. Counseling provided regarding titration up to fentanyl 50 mcg patch, patient and son in agreement. Contact to home health RN who is assisting with patch changes while daughter is traveling regarding plan of care. Call to right aid to facilitate obtaining patch that is covered by insurance. Plan to evaluate at next week's visit. 2. Recurrent urothelial stage IV cancer. Discussed patient's decision making regarding ongoing chemotherapy versus transition to comfort and hospice. Patient perceives she has goals she still needs to meet, the patient is done poorly on chemotherapy in the past. In the context of this discussion ensued regarding support as daughter is out of town. Decision was made to delay until next week. Patient also with short-term memory issues, daughter should be included in chemotherapy teaching. 3. Constipation. Patient has been using MiraLAX with good results as long as patient remembers to take. She is having daily soft stool. Patient at high risk for obstruction will have home health continue to assist patient with management. Unfortunately side effects of her chemotherapy include GI and diarrhea, will need instruction and follow-up regarding this. 4. Lymphedema right lower extremity. Patient swelling has improved dramatically, discomfort improved as well. Currently patient is using support hose, no signs or symptoms of current DVT, he is wrapping only as needed. 5. Anorexia. Patient's weight remains stable, goal is not to lose further. Patient is not interested in any appetite stimulant, with more frequent interaction patient is doing better with eating. 6. Advanced care planning. Patient does have a PAM ST in place, D POA is her daughter Rick Atkins [phone]. Unfortunately daughter was not available for discussion regarding comfort measures versus proceeding with chemotherapy. Patient this point in time wants to "give it a try". We will continue to monitor and transition to hospice when appropriate. Time Spent: 45 minutes with getting 50% of this done in counseling and coordination of care regarding pain management, safety, referral to [facility], and anticipatory guidance
== END 2018-09-11 09:55 | disposition home or self-care (01) ==
LOC: PC 09:54
PROVIDERS: ATTEND Nurse Practitioner Adult Health
DX: Z51.5 Encounter for palliative care (principal); G89.3 Neoplasm related pain (acute) (chronic); C79.51 Secondary malignant neoplasm of bone; C78.02 Secondary malignant neoplasm of left lung; D49.59 Neoplasm of unspecified behavior of other genitourinary organ; Z93.6 Other artificial openings of urinary tract status; R63.0 Anorexia; R53.83 Other fatigue; K59.00 Constipation, unspecified; I89.0 Lymphedema, not elsewhere classified; Z66 Do not resuscitate; Z79.891 Long term (current) use of opiate analgesic; Z79.899 Other long term (current) drug therapy
CPT/HCPCS: 99215

== ENCOUNTER 2018-09-18 11:26 | Outpatient (CLI) | payer MEDICARE, OTHER ==
--- NOTE | 2018-09-18 18:19 | CONSULTATION NOTE ---
Palliative Care Follow Up - Referral Referring Provider: Dr. 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 Patient recently completed 6 cycles of pembrolizumab, unfortunately restaging PET scan showed further progression and increased hypermetabolic soft tissue in the anterior pelvic wall was enlarging. This was in addition the left upper lobe pulmonary nodules were larger as well. Patient's pain has been increasing, we did increase her fentanyl 50 mcg patch, which she started on Sunday. Patient does not perceive there is a difference, but daughter perceives she has had less exhaustion, and presents with less discomfort and not so focused on the pain. She is continue use the oxycodone 5 mg to 10 mg as needed breakthrough pain. She does have some increased swelling in her right leg, this is attributed to lymphedema. This continues to be quite tender to her, she has wrapped with Isidro wraps before with improvement, but patient is unable to do independently and it does become uncomfortable and takes off in the evening. On examination, the deep open crater in the left area does appear to be with more depth, and does appear to be did deteriorating more. Her labia and vaginal area have remained quite swollen, though there is increased swelling on the left side today of the left labia and further up into the pubic area. She does perceive it is enlarging as well. She reports the drainage fluctuates, continues to have intermittent bleeding, but mostly serous with rouse tinge noted in depends today. Social History - Living Situation Living arrangement: At home Living Situation: Alone Support System: Working with medical palliative care nursing home social worker for [place] PES application and long-term planning. Daughter is to be gone for extended period time again, has multiple questions again about resources, wanting some of these issues dealt with before she leaves. Home health nurse checking on patient couple times a week, goal of daughter and son is to have patient remain in home for as long as possible. Neither one though can be a primary caregiver when patient declines. Medications/Allergies - Medications Home Medications: Ambulatory Orders Medication Instructions Recorded Confirmed oxyCODONE [Roxicodone] 5 - 10 mg PO Q3HR PRN 05/15/18 09/19/18 fentaNYL [Fentanyl 12mcg patch] 50 mcg TOP .Q3 DAYS 06/22/18 09/19/18 Ondansetron [Ondansetron Odt] 4 mg PO Q4H PRN 09/18/18 09/19/18 Prochlorperazine Maleate 10 mg PO Q6H PRN 09/18/18 09/19/18 [Compazine] Loperamide HCl [Loperamide] 2 mg PO PRN PRN 09/19/18 09/19/18 - Allergies Allergies/Adverse Reactions: Allergies Allergy/AdvReac Type Severity Reaction Status Date / Time Sulfa (Sulfonamide Allergy Unknown Verified 06/05/18 15:19 Antibiotics) Plastic tape Allergy Rash Uncoded 06/05/18 15:19 Review of Systems - Constitutional Constitutional: reports: Fatigue, Weight stable (93). denies: Fever, Chills - Cardiovascular Cardiovascular: reports: Decr. exercise tolerance - Respiratory Respiratory: reports: SOB with exertion. denies: SOB at rest - Gastrointestinal Gastrointestinal: reports: Constipation (has forgotten to take Mirlax), Early satiety. denies: Nausea ([facility] RN reviewing s/s post chemo management) - Genitourinary Genitourinary: reports: Other (has urostomy; independent in care) - Musculoskeletal Musculoskeletal: reports: Stiffness, Muscle weakness, Other (unable to sit; "walks" all day;) - Integumentary Integumentary: reports: Dryness - Neurological Neurological: reports: General weakness, Memory problems - Psychiatric Psychiatric: denies: Depression, Anxiety - Hematologic/Lymphatic Hematologic/Lymphatic: reports: Anemia (10.7 hgb), Lymphadenopathy (right leg) - All Other Systems All Other Systems: reports: Reviewed and negative Physical Exam - Vital Signs Temperature: 36.7 C Pulse Rate: 85 Respiratory Rate: 16 Blood Pressure: 117/77 - Physical Exam General Appearance: positive: No acute distress Eyes Bilateral: positive: Normal inspection Neck: positive: Trachea midline Respiratory: positive: No respiratory distress Abdomen: positive: Non-tender, Other (flat) Skin: positive: Other (see HPI) Extremities: positive: Pedal edema (increase swelling of RLE has returned; remains tender to touch; has not been wrapping as cannot alamo self; did not like compression hose; did help though both with swelling and comfort; trace to 1+ swelling in left foot/ankle) Neurologic/Psychiatric: positive: Mood/affect nml, Disoriented to time Palliative Care - POLST Patient has POLST: Yes POLST Status: DNR, Selective Treatment Pain: Location (Continues to perceive pain as a 8 out of 10, worse with sitting or pressure on pelvic area. She is sleeping 8-10 hours, pain worst on arising; patient difficult comparing pain previous level with increase in patch; daughter reports pain behaviors better.) Tiredness/Fatigue: Moderate (4-6) Drowsiness/Sedation: Mild (1-3) Nausea: None Depression: None Anxiety: None Dyspnea: None Anorexia: Mild (1-3) Sleep: Sleeps well Constipation: Yes, Opoid induced, Unmanaged Feelings of wellbeing/Perceived Quality of Life: Fair Performance Status: Patient working with home health to improve safety, particularly with OT around bathing. Patient is ambulatory, has difficulty sitting down so is "in constant motion". He does have difficulty getting out secondary to steps, her balance is not good. Daughter wondering about other resources for ramp, son was supposed to be following through. She is anxious to get things done prior to her leaving again. - Palliative Care Discussion: To the patient short-term memory issues, patient has difficulty recalling and holding onto conversations. At one point she reported to me that she heard her cancer "was not fatal". We revisited her understanding of her visit with Dr. Castro, reviewed that her chemotherapy is palliative in nature, and she was given the choice of gemcitabine or comfort measures. Counseling provided and reviewed with daughter present, weighing benefits and burdens given patient's response with each treatment, patient is quite fragile and the goal is not to cause more harm but are looking for benefit. It is okay to hope for the best, but need to continue to focus on quality of life. Patient does report continues to grapple with her ongoing health issues, but does feel like she "totally acc epts" what is coming her way.Patient will need a long-term plan regarding end of life, hope was to be able to have her in her own home but caregiving will be an issue. Working with medical palliative care nursing home social worker on resources. Impression and Recommendations - Palliative Care Impression: This is a 78-year-old woman with recurrent stage IV urothelial cancer with metastases to the pubic symphysis, and lung. She has progressed despite 6 rounds of immunotherapy, is choosing at this point to move forward with gemcitabine. She will be receiving this every 2 weeks, patient continues with high symptom burden of pain, anorexia, and fatigue. Palliative care to continue provide support while patient receiving current palliative treatment, transition to hospice when appropriate Recommendations/Counseling Done: 1. Pain of neoplastic origin. Patient with difficult short-term memory issues, daughter's perception is a patient does present with decreased pain behaviors. We will go ahead and list support at home health RN and ongoing evaluation if need to titrate further. Patient currently on fentanyl 50 mcg patch, using oxycodone 5-10 mg as needed breakthrough pain. Patient with progressive disease, may need continued titration. 2. Constipation. Secondary patient's short-term memory issues, patient has not been taking the MiraLAX. Had tried 1 capful had had loose stools, had been reinstructed to take one half capful but had forgotten. She does report hard stool and difficulty passing. Has been instructed to restart at half capful, but warned given side effects of chemo which include diarrhea, may find this difficult to titrate. Will enlist support of home health RN to assist patient in navigating this. 3. Recurrent urothelial stage IV cancer with metastatic disease with progression. Patient to start gemcitabine today, scheduled every 2 weeks. Has received instruction and medications regarding management. Reviewed with daughter to machine pecan picker prescription of Imodium to have available at house. Patient remains quite fragile, will evaluate patient's response and concerns for side effect and ongoing decline. 4. Lymphedema right lower extremity. Patient now having recurrent swelling of lymphedema, has responded well to wrapping. Unfortunately daughter not avail able all days, did discuss having home health nurse to when she visits. Patient is able to take off in the evenings. May also consider Tubigrip for in between. 5. Anorexia. Patient's weight is remaining somewhat stable, patient continues to "do her best". Has been instructed in course to increase her fluids with chemotherapy today, this may be complex given her social situation. 6. Advanced care planning. Patient does have a PAM ST in place, medical D POA is her daughter Rick Atkins [phone]. Working with medical palliative care nursing home social worker on advanced care planning and long-term planning. We will continue to monitor and transition to hospice when appropriate. Time Spent: 45 minutes with getting 50% of this done in counseling and coordination of care, evaluation of pain and symptom management, and anticipatory guidance
== END 2018-09-18 11:27 | disposition home or self-care (01) ==
LOC: PC 11:26
PROVIDERS: ATTEND Nurse Practitioner Adult Health
DX: Z51.5 Encounter for palliative care (principal); C80.1 Malignant (primary) neoplasm, unspecified; C78.00 Secondary malignant neoplasm of unspecified lung; C79.51 Secondary malignant neoplasm of bone; G89.3 Neoplasm related pain (acute) (chronic); I89.0 Lymphedema, not elsewhere classified; R63.0 Anorexia; R41.3 Other amnesia; K59.03 Drug induced constipation; Z66 Do not resuscitate; Z93.6 Other artificial openings of urinary tract status; Z79.899 Other long term (current) drug therapy
CPT/HCPCS: 99215

== ENCOUNTER 2018-10-02 11:03 | Outpatient (CLI) | payer MEDICARE, OTHER ==
--- NOTE | 2018-10-02 19:48 | CONSULTATION NOTE ---
Palliative Care Follow Up - Referral Referring Provider: Dr. 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 Patiently recently completed 6 cycles of pembrolizumab, unfortunately restaging PET scan showed further progression. Patient has been started on gemcitabine, she did tolerate fairly well without any significant nausea or vomiting or undue fatigue. Unfortunately she is continued to have escalating pain, this is somewhat centralized to the area of the open draining lesions, but most acutely felt in her right lower extremity, she does have enlarged and prominent veins, no redness or erythema but hypersensitive to touch. She is continue to lose weight, appears quite cachectic. She continues to live alone, she does have ongoing cognitive deficits, which do increase with the titration of the opioids at higher dosing. She is started the fentanyl 50 mcg patch a couple weeks ago, with only mild improvement, she continues to use up to 40 mg of oxycodone for breakthrough dosing, though recognizes it is only lasting about 3 hours. On examination the open deeper crater over her left pubic area, does present with some yellow slough, she reports some acute bleeding though no active bleeding or raw areas noted on exam. Her labia and vaginal area remain quite swollen, bleeding continues to be mostly serous with grade 2 inch. Patient presents is quite fragile, with both functional, and some increasing cognitive deficits. Patient presents very well and covers, this is of a great frustration to her daughter as clinical staff often do not recognize the severity of her issues regarding this. Discussion regarding balancing need for adequate symptom control, versus adding to patient's confusion and limiting her ability to remain independent. Had met with Dr. Castro previous to my visit, recommended increasing patch to 75 mcg, daughter's concern is again patient safety and requests a more conservative approach. Patient is being followed by home health services, but for the most part is home alone in her fragile state. Social History - Living Situation Living arrangement: At home Living Situation: Alone Support System: Patient's daughter Rick does oversee and advocates for patient's care, she does check on her frequently by phone and also assist with changing her patch. She has had to travel for work, her son does provide support as well. Patient has limited income and resources. Her sister has been visiting, she admits that she presents quite differently on the phone as in person. And does recognize patient's significant confusion as well. Concern for long-term plan regarding patient's ongoing decline, and ability to stay in her own home setting, is working with palliative care executive secretary social welfare as well. Medications/Allergies - Medications Home Medications: Ambulatory Orders Medication Instructions Recorded Confirmed oxyCODONE [Roxicodone] 5 - 10 mg PO Q3HR PRN 05/15/18 10/02/18 fentaNYL [Fentanyl 12mcg patch] 50 mcg TOP .Q3 DAYS 06/22/18 10/02/18 Ondansetron [Ondansetron Odt] 4 mg PO Q4H PRN 09/18/18 10/02/18 Prochlorperazine Maleate 10 mg PO Q6H PRN 09/18/18 10/02/18 [Compazine] Loperamide HCl [Loperamide] 2 mg PO PRN PRN 09/19/18 10/02/18 Dexamethasone [Decadron] 4 mg PO DAILY 10/02/18 10/02/18 Polyethylene Glycol 3350 [Miralax] 17 gm PO DAILY PRN 10/02/18 10/02/18 - Allergies Allergies/Adverse Reactions: Allergies Allergy/AdvReac Type Severity Reaction Status Date / Time Sulfa (Sulfonamide Allergy Unknown Verified 06/05/18 15:19 Antibiotics) Plastic tape Allergy Rash Uncoded 06/05/18 15:19 Review of Systems - Constitutional Constitutional: reports: Fatigue, Poor appetite, Weight loss (88.5) - Ears, Nose & Throat Ears, Nose & Throat: reports: Hearing loss - Cardiovascular Cardiovascular: reports: Lightheadedness, Exertional dyspnea, Decr. exercise massiel erance - Respiratory Respiratory: reports: SOB with exertion - Gastrointestinal Gastrointestinal: reports: Early satiety. denies: Constipation, Nausea, Reflux/heartburn - Genitourinary Genitourinary: reports: Other (urostomy) - Musculoskeletal Musculoskeletal: reports: Stiffness, Limited range of motion, Muscle weakness, Other (right leg pain) - Integumentary Integumentary: reports: Dryness - Neurological Neurological: reports: General weakness, Memory problems - Hematologic/Lymphatic Hematologic/Lymphatic: reports: Anemia, Other (2 episodes of wound bleeding). denies: Recurrent infections - All Other Systems All Other Systems: reports: Reviewed and negative Physical Exam - Vital Signs Temperature: 36.9 C Pulse Rate: 67 Respiratory Rate: 18 O2 Saturation: 99 Blood Pressure: 129/82 - Physical Exam General Appearance: positive: Mild distress Eyes Bilateral: positive: Normal inspection ENT: negative: Oral lesions Neck: positive: No JVD, Trachea midline Cardiovascular: positive: Regular rate & rhythm Respiratory: positive: No respiratory distress Abdomen: positive: Other (cachetic) Skin: positive: Dryness, Other (malignant lesion see HPI;) Extremities: positive: Pedal edema (1+ bilaterally; improved) Neurologic/Psychiatric: positive: Mood/affect nml, Disoriented to time, Weakness Palliative Care - POLST Patient has POLST: Yes POLST Status: DNR, Selective Treatment Pain: Pain worsening, Severity (Patient on fentanyl 50 mcg, using oxycodone 10 mg every 4 hours for a total of 8 tabs; has been "holding back". Reports oxyc odone lasting about 3 hours; 8/10; no pain at night time; sleeps without problems; pain exacerbated by sitting/pressure/relieved by lying down) Tiredness/Fatigue: Severe (7-10) Drowsiness/Sedation: Moderate (4-6) Nausea: Mild (1-3) Depression: Mild (1-3) Anxiety: Mild (1-3) Dyspnea: None Anorexia: Severe (7-10), Weight loss Sleep: Sleeps well Constipation: No, Comment (has not needed any mirlax; but does have available) Feelings of wellbeing/Perceived Quality of Life: Fair, Acceptable, Worsening Performance Status: Patient still ambulatory in her own home, daughter does report though increased difficulty getting up the stairs to her house. Patient paces most of the day, she cannot tolerate sitting down. Home health OT has ordered equipment to assist with safety, has offered home health aide. Long discussion with encouragement to accept particularly in the context of safety. - Palliative Care Discussion: Patient expresses much gratefulness regarding having sister visit currently. Patient continues with her cognitive deficits, having difficulty processing at times the severity of her illness and the implications regarding this. Patient does exhibit symptoms of functional and cognitive decline, as well as high symptom burden. Patient is hopeful to get a response, is on cycle 2 of 4, may need to revisit sooner though goals of care, and consider hospice transition if patient exhibits further decline given the complexity of her social situation. Results - Lab Results Lab results reviewed: Yes Impression and Recommendations - Palliative Care Impression: This is a 78-year-old woman with recurrent stage IV urothelial cancer with metastases to the pubic symphysis and lung. She is currently receiving gemcitabine, to receive cycle 2 today. She continues with high symptom burden, with progressing pain, weight loss, anorexia, and fatigue. Palliative care to continue provide support while patient receiving current palliative treatment, transition to hospice when appropriate Recommendations/Counseling Done: 1. Pain of neoplastic origin. Lenghty discussion with patient's daughter, patient, regarding patient's escalating pain. Pain intensity at this point is mostly concentrated on her right lower extremity, will try Decadron 4 mg see if this will augment her pain relief, the oxycodone at this point in time does not appear to be impacting her leg pain, though it does help her pubic symphysis pain. Did provide both with a prescription of fentanyl 50 mcg and 12 mcg, to allow for titration up. Will initiate Decadron and then decide with input from HHRN/daughter and BTP use. Patient encouraged to use more oxycodone, can use every 3 hours. Patient easily confused, agreed to keep 5 mg dosing as currently taking 2 tabs at a time. Patient to keep log, home health nurse requested this as well. Reviewed yet again the goal would be to see how much it takes to keep her comfortable, the safety of trialing the short acting first to see how her "delerium" as her daughter describes it, falls out. Will titrate up to 62 mcg if needed in next couple of patch changes. 2. Weight loss. This is multifactorial in origin. Patient does report early satiety, "forces herself to eat". Patient appears quite cachectic, ongoing upper and lower extremity muscle wasting. Counseling provided regarding goal for Decadron also to help with appetite as an appetite stimulant. Side effects though reviewed with daughter, given patient's already compromised cognitive status. Communication to home health team regarding medication changes as well to help monitor 3. Recurrent urothelial stage IV cancer with metastatic disease with progression. Patient to receive a total of 4 cycles, and then expected restaged. Patient continues to present with ongoing decline, will need to continue to revisit given patient's complex social situation, regarding goals of care, and transition to hospice when appropriate 4. Advanced care planning. Patient does have a PAM ST in place, medical D ELENA is her daughter Rick Atkins [phone]. Patient continue to work with palliative care social work on advanced care planning and long-term planning. Patient would like to have a palliative care volunteer, will follow up and see where processes regarding referral process with [employer]ELOPER. Time Spent: 45 minutes with greater than 50% of this done in counseling regarding pain and symptom management goals of care, review of safety issues coordination of care with home health and anticipatory guidance CC Home health
== END 2018-10-02 11:04 | disposition home or self-care (01) ==
LOC: PC 11:03
PROVIDERS: ATTEND Nurse Practitioner Adult Health
DX: Z51.5 Encounter for palliative care (principal); G89.3 Neoplasm related pain (acute) (chronic); C68.0 Malignant neoplasm of urethra; C78.00 Secondary malignant neoplasm of unspecified lung; C79.51 Secondary malignant neoplasm of bone; R41.89 Other symptoms and signs involving cognitive functions and awareness; R63.4 Abnormal weight loss; R68.81 Early satiety; R64 Cachexia; Z93.6 Other artificial openings of urinary tract status; R53.83 Other fatigue; H91.90 Unspecified hearing loss, unspecified ear; Z66 Do not resuscitate; Z79.891 Long term (current) use of opiate analgesic
CPT/HCPCS: 99215

== ENCOUNTER 2018-10-14 14:15 | Outpatient (CLI) | payer MEDICARE, OTHER ==
--- NOTE | 2018-10-14 18:32 | CONSULTATION NOTE ---
Palliative Care Follow Up - Referral Referring Provider: Dr. 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 Her original diagnosis was in 07/2014 and was treated at [facility] with surgery 08/24/2014 with anterior extend deterioration to include ovarian is, uterus, fallopian tubes, cervix, bladder, and attached urethra. She has a ileo- conduit diversion. This is followed by post chemoradiation. She did have recurrent disease in her inguinal nodes in 2017, with another round of concurrent chemoradiation. Patiently recently completed 6 cycles of pembrolizumab, unfortunately restaging PET scan showed further progression With increased hypermetabolic soft tissue in the anterior pelvic wall enlarging, and previous abnormalities have now come "confluent". There is also increased abnormality in the left upper pelvis that involves the distal descending colon. The upper lobe pulmonary nodules were larger as well. Patient has been started on gemcitabine, she did tolerate fairly well without any significant nausea or vomiting or undue fatigue. Unfortunately she is continued to have escalating pain, this is somewhat centralized to the area of the open draining lesions, but most acutely felt in her right lower extremity, she does have enlarged and prominent veins, no redness or erythema but hypersensitive to touch. She is continue to lose weight, appears quite cachectic. She continues to live alone, she does have ongoing cognitive deficits, which does increase with the titration of the opioids at higher dosing. She is started the fentanyl 50 mcg patch 09/11 with only mild improvement. In the context of titration, her daughter expressed concerns regarding patient's ongoing confusion, we did try and initiate shortening time. For oxycodone to 3 hours as it was only lasting about that long. She does report increased pain control taking oxycodone 10-15 mg every 3 hours, unfortunately she still continue to take between 40 and 60 mg of oxycodone in 24 hours. She is awakening in pain at night, described one night was so excruciating she had to yell out. We did discuss in the context of her pain control that we do need to be more aggressive and created a safety net but balance with improved plan of support On examination the open deeper crater over her right pubic area, does present with some yellow slough, she reports some acute bleeding though no active bleeding or raw areas noted on exam. Compared to exam on 10/02, craters continue to extend up above the right groin area almost abutting the ileostomy wafer. The malignant wound fills her pubic area, firmness and swelling extends into labial/vaginal folds. This is made it more difficult for placement for wafer. Also on palpation around that right quadrant there is firmness not previously noted, the patient is quite cachectic unclear if new masses now prominent in appearance. Her labia and vaginal area remain quite swollen, drainage continues to be mostly serous, with some serosanginous, with rouse tinge. Patient presents is quite fragile, with both functional, and some increasing cognitive deficits. Patient presents very well but has poor short term memory deficits and recall of information. Sister had been recently staying with her, daughter reports it was quite eye-opening, patient always says reports how well she is eating, coping, and what she is up to and confirmed she over states her abililties and follow through. Daughter is been calling her frequently, to check on her make sure she is okay. Concern regarding high risk of fall, she is quite fragile, is having decreased stamina, poor activity tolerance, denies dizziness but does admit to lower extremity general weakness. Family conference initiated today by daughter and son, to address escalating pain, goals of care, concerns regarding patient continuing treatment and need for increased support in home. Social History - Living Situation Living arrangement: At home Living Situation: Alone Support System: Patient does live alone and is fairly isolated in her neighborhood. Her daughter checks on her frequently and changes fentanyl patch. Does have home health RN checking twice a week, intermittent visits and support from son, sister has recently been with her for visit. Patient recently obtained [employer]. There is been increasing concern regarding patient's ability to live by herself, safety at home, and need for increased support. Does have [place] P[place] application, though has not completed, patient experiencing significant financia l stressors as well as escalating symptom burden. Patient does have one other sister who is currently on hospice, is expected to pass soon with lung cancer and dementia. Medications/Allergies - Medications Home Medications: Ambulatory Orders Medication Instructions Recorded Confirmed oxyCODONE [Roxicodone] 10 - 15 mg PO Q3HR PRN 05/15/18 10/02/18 fentaNYL [Fentanyl 12mcg patch] 62 mcg TOP .Q3 DAYS 06/22/18 10/14/18 Ondansetron [Ondansetron Odt] 4 mg PO Q4H PRN 09/18/18 10/14/18 Prochlorperazine Maleate 10 mg PO Q6H PRN 09/18/18 10/14/18 [Compazine] Loperamide HCl [Loperamide] 2 mg PO PRN PRN 09/19/18 10/14/18 Dexamethasone [Decadron] 4 mg PO DAILY 10/02/18 10/14/18 Polyethylene Glycol 3350 [Miralax] 17 gm PO DAILY PRN 10/02/18 10/14/18 - Allergies Allergies/Adverse Reactions: Allergies Allergy/AdvReac Type Severity Reaction Status Date / Time Sulfa (Sulfonamide Allergy Unknown Verified 06/05/18 15:19 Antibiotics) Plastic tape Allergy Rash Uncoded 06/05/18 15:19 Review of Systems - Constitutional Constitutional: reports: Fatigue, Weight loss (90.8 patient with increased upper extremity wasting; LE edema most likely adding to weigh). denies: Fever, Chills - Cardiovascular Cardiovascular: reports: Exertional dyspnea, Decr. exercise tolerance - Respiratory Respiratory: reports: SOB with exertion. denies: SOB at rest - Gastrointestinal Gastrointestinal: reports: Constipation (patient per notes is not compliant with Miralax; daughter believes just forgets it; had hard stools inconsistent in reporting), Early satiety (patient adament eating well; will go into listing all the things she eats; daughter and sister noted small portions; frequent distracted and patient reports has to force herself to eat. Reports good fluid intake; urine is raj in color). denies: Nausea - Genitourinary Genitourinary: reports: Other (ileal conduit;) - Musculoskeletal Musculoskeletal: reports: Muscle weakness, Other (Patient only tolerates either being straight up or laying down. She cannot tolerate sitting for any extended period times because of the pain on her pressure of her pelvis and vaginal area.) - Integumentary Integumentary: reports: Other (malignant wound expanding) - Neurological Neurological: reports: General weakness, Memory problems (family perceives worsening;). denies: Dizziness - Psychiatric Psychiatric: denies: Depression, Anxiety - Hematologic/Lymphatic Hematologic/Lymphatic: reports: Anemia (HGB 10.8). denies: Recurrent infections - All Other Systems All Other Systems: reports: Reviewed and negative Physical Exam - Vital Signs Temperature: 96.3 C Pulse Rate: 75 Respiratory Rate: 18 O2 Saturation: 97 (ra @ rest) Blood Pressure: 123/72 - Physical Exam General Appearance: positive: Moderate distress (difficulty sitting; needing to repeat pain pills) Eyes Bilateral: positive: Normal inspection ENT: positive: Dry mucous membranes Neck: positive: No JVD, Trachea midline Cardiovascular: positive: Regular rate & rhythm Respiratory: positive: Breath sounds nml, Diminished in bases Abdomen: positive: Tenderness, Mass (palpate RUQ around ileal conduit), Other (cachetic) Skin: positive: Dryness Extremities: positive: Other (right leg with prominent varicous veins; areas of 2-3 cm purple discoloration at surface; some swelling around ankle; left leg with pitting edema up to mid calf 1-2 +;) Neurologic/Psychiatric: positive: Mood/affect nml, Disoriented to time, Weakness Palliative Care - POLST Patient has POLST: Yes POLST Status: DNR, Selective Treatment Pain: Pain worsening, Location (Pain mostly localized to pelvic/pubis area into the right upper quadrant. Significant tenderness and hyper sensitivity to right lower leg. See HPI. Patient does rate pain at 8/10. Reports every 3 hours dosing of oxycodone 10 mg has improved management.) Tiredness/Fatigue: Severe (7-10) Drowsiness/Sedation: Mild (1-3) Nausea: None Depression: None Anxiety: Mild (1-3) Dyspnea: None Anorexia: Moderate (4-6) Sleep: Variable sleep pattern (now awakening in pain) Constipation: Yes, Opoid induced, Unmanaged Feelings of wellbeing/Perceived Quality of Life: Fair, Worsening Performance Status: Patient is ambulatory around the house, she does participate in her own meal prep. Daughter provide support and shopping, they are using shakes for support. Patient is quite insistent she is eating adequate amounts. Patient is managing her wound with changing of depends, continue to cleanse on a regular basis. She does have some intermittent incontinence of stool. Patient would benefit from supervision and assistance with bathing, though patient is fiercely independent. She is unable to get up and down the steps by herself, she does have steps into the house. She does spend most of her time reclining on the couch, or and/or in bed. She is up for periods of time "pacing" to help her manage the pain. - Palliative Care Discussion: Patient continues to exhibit both functional and cognitive decline. She does have escalating pain, she has a very complex social situation as far as safely titrating aggressively her pain medications. She does show progressive tumor expansion into her right upper quadrant area and enlarging malignant wound. Lengthy family conference including Esa her son, no well her daughter both expressing significant concern over her current situation. Patient's goals are to focus on quality of life issues, she has some particular things she would really like to finish up for her "bucket list" for end of life. She is quite pragmatic, but has very little insight into her decline and cognitive deficits, nor the concerns regarding her family for safety and changes they are observing. Counseling provided regarding transition to hospice, goals of care would need to be focus on comfort, which would mean no further chemotherapy. Daughter and son anxious for patient to complete [place] P[place] application, will work with manager hospice, this would allow it to be fast tracked and most likely patient needs assistance to follow through and complete as is too complex for her. Reviewed hospice benefit including coverage of medications, this is been a significant financial stressor, depends, and closer monitoring, and introduction of the hospice team. Would also be able to more aggressively manage her pain with more frequent monitoring. Esa and Rick, very much want to make it work so that she can stay on her own home, neither one of them have a situation where she can be in their homes. They are hoping to be able to piece together with family members some shifts as needed as patient declines, supplemented hopefully by COREY and support from hospice team. Goal is to put plan in place prior to crisis. Contact was made with hospice team, they do have an opening on Sunday. Impression and Recommendations - Palliative Care Impression: This is a 78-year-old woman who has stage IV urothelial cancer, with progressive malignant wound across her pubic symphysis, increased swelling and discomfort in her vaginal/labia area, also has known right upper lobe lung metastases. Patient presents is quite fragile, with functional and cognitive decline, and increasing symptom burden including escalating pain. Patient also has complex social situation, after family meeting weighing benefits and burdens of palliative chemo versus hospice, decision was made to transition to hospice care. Recommendations/Counseling Done: 1. Pain of neoplastic origin. Patient on fentanyl 50 mcg patch, using 10-15 mg of oxycodone every 3 hours while awake, awakening in pain. We will go ahead and add today fentanyl 12 mcg patch, daughter will help facilitate this. Would recommend giving her situation, to continue use fentanyl to decrease concerns of compliance, would continue to increase by 12 mcg increments every 2-3 patch changes. Given expected increased support, this was acceptable to the daughter, again patient having increased cognitive issues, does admit to getting quite "drifty" on her pain medication, but will comes to relief. 2. Constipation. In review of home health RN notes, and patient's ongoing difficulty with remembering MiraLAX. Patient does appear to have ongoing intermittent constipation, will need closer tracking and follow-up in the home setting. Patient now will be off gemcitabine, may be able to get more reliable patterns and schedule for bowel program. 3. 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 Currently still managing well with cleansing on a regular basis and using medium size depends. Am concerned regarding it is encroaching area of wafer of ileal conduit. Patient has been independent and changing away for, may need some increased support regarding this. 4. Advanced care planning. Significant amount of time spent with family processing weighing benefits and burdens of moving forward with palliative chemotherapy versus hospice. Patient's goals are to focus on comfort and quality of life, patient with increasing high symptom burden, and concerns regar ding need to put in place plan for safety and end of life. Counseling provided regarding hospice benefit, interdisciplinary team, and focus of care. Patient quite tangential in her conversations regarding this, reports she is not afraid of dying, is quite pragmatic about planning for end of life. Family decision in the end, was made to transition to hospice. Contact the hospice team, for admit on Sunday, will need discharge from home health. Time Spent: 75 minutes with greater than 50% of this done in family meeting, defining goals of care, counseling regarding hospice benefit versus palliative chemotherapy, counseling provided regarding pain management, safety, and long-term planning needs. As well as anticipatory guidance provided.
== END 2018-10-14 14:16 | disposition home or self-care (01) ==
LOC: PC 14:15
PROVIDERS: ATTEND Nurse Practitioner Adult Health
DX: Z51.5 Encounter for palliative care (principal); G89.3 Neoplasm related pain (acute) (chronic); C68.9 Malignant neoplasm of urinary organ, unspecified; C78.01 Secondary malignant neoplasm of right lung; C79.82 Secondary malignant neoplasm of genital organs; C79.89 Secondary malignant neoplasm of other specified sites; K59.03 Drug induced constipation; T40.2X5A Adverse effect of other opioids, initial encounter; T47.4X6A Underdosing of other laxatives, initial encounter; Z91.138 Patient's unintentional underdosing of medication regimen for other reason; R41.3 Other amnesia; Z79.899 Other long term (current) drug therapy; Z79.891 Long term (current) use of opiate analgesic; Z93.2 Ileostomy status; Z91.81 History of falling; Z60.2 Problems related to living alone; Z63.79 Other stressful life events affecting family and household; Z59.9 Problem related to housing and economic circumstances, unspecified; Z66 Do not resuscitate
CPT/HCPCS: 99215

== ENCOUNTER 2018-11-05 08:22 | Inpatient (IN) | payer OTHER ==
[2018-11-05] MEDS ORDERED: LORazepam 0.5 MG TABLET SL PRN (08:26)
[2018-11-05] MEDS ORDERED: ACETAMINOPHEN 325 MG TABLET PO PRN (08:26)
[2018-11-05] MEDS ORDERED: HYDROmorphone PCA 20MG/100ML IV PRN (08:26)
[2018-11-05] MEDS ORDERED: PETROLATUM WHITE 5 GM PACKET TOP PRN (08:26)
[2018-11-05] MEDS ORDERED: MIN OIL/DIMETHICON/COCONUT OIL 92 GM TUBE TOP PRN (08:26)
[2018-11-05] MEDS ORDERED: TEMAZEPAM 15 MG CAPSULE PO PRN (08:26)
[2018-11-05] MEDS ORDERED: CARBOXYMETHYLCELLULOSE OPHTH DROPS EACHEYE PRN (08:26)
[2018-11-05] MEDS ORDERED: POLYETHYLENE GLYCOL 3350 17 GM PACKET PO PRN (08:38)
[2018-11-05] MEDS ORDERED: PROCHLORPERAZINE 5 MG TABLET PO PRN (08:38)
[2018-11-05] MEDS ORDERED: ONDANSETRON ODT 4 MG TABLET PO PRN (08:38)
[2018-11-05] MEDS ORDERED: LOPERAMIDE 2 MG CAPSULE PO PRN (08:38)
[2018-11-05] MEDS: SODIUM CHLORIDE 0.9% 1,000 ML IV SCH ×2 (10:56→15:51)
[2018-11-05] MEDS: HYDROmorphone PCA 20MG/100ML IV PRN ×4 (10:58→20:26)
[2018-11-05] MEDS: DEXAMETHASONE 4 MG TABLET PO SCH (12:19)
[2018-11-05] MEDS: METHADONE 5 MG TABLET PO SCH ×2 (12:19→17:29)
[2018-11-05] MEDS: MEGESTROL 400 MG/10 ML UDC PO SCH (12:19)
--- NOTE | 2018-11-05 15:31 | HISTORY & PHYSICAL EXAMINATION ---
Chief Complaint - Chief Complaint Chief Complaint: Hospice patient with intractable pain to leg and pelvis History of Present Illness - Admitted From Admitted From:: Direct admit from Dr Leal office - History Obtained From Records Reviewed: yes History obtained from: patient Exam Limitations: yes due to her demented status - History of Present Illness HPI Comment/Other: 78-year-old female residing by herself in her home who has diagnosis of urothelial carcinoma. This was diagnosed a few years ago, initially treated with ALICIA plus BSO, cystectomy and urethrectomy. She had a urostomy created which is located in the right lower quadrant. She subsequently underwent chemotherapy but fairly quickly began developing disease progression including lung metastases and discontinued chemotherapy. She was followed by palliative care for several months. She began to develop a fungating lesion on the mons pubis which has progressively enlarged, increasing abdominal discomfort and some abdominal distention. The lesion on the mons pubis has now extended outward into the groin and labia. She is also developed intense pain on the medial right ankle suspicious for metastatic involvement. She has been treated with fentanyl patches and oral oxycodone but pain management has been an increasing problem. It is also complicated by the fact that she lives by herself and suffers from moderately severe dementia although can present as fairly lucid and intact if one does not start carefully questioning her. Her son and daughter have been unavailable to be present for any extended period to assist with her and there have been many delays with attempting to get [employer] applications completed. There is been discussion about placement in a facility but that has not as of yet happened. Hospice [facility] continues to work with family and patient. Over the past couple days her pain has been escalating despite increasing her fentanyl patch and oxycodone. This morning patient called nearly hysterical with severe pain. After some history from patient and daughter she apparently took 15 mg of oxycodone at about 7 PM and 9 PM last night but then slept and had had no pain medication until this morning. She is then taken two 15 mg oxycodone doses but was still writhing in pain. She states she had 3 bowel movements and thinks that may have helped. Hospice nurse arrived and over the next hour and a half titrated and additional 70 mg of oral morphine. When EMS arrived to transport patient to the hospital she was given an additional 10 mg IV morphine en route. Upon arrival in her hospital room she seemed much more comfortable but stated she still had an aching discomfort in the pelvic region. It appears that over about 2-1/2 hours she had an oral morphine equivalent dose of approximately 145 mg. She is still quite conversant and alert so clearly has not been overly sedated. Goals of carepatient and family goal was to keep her at home. There has been significant difficulty in getting son and daughter to understand that their mother needs 24-hour supervision to manage her medications. This has also limited some medication choices. Patient has POLST form stating DO NOT RESUSCITATE, DO NOT INTUBATE and no feeding tube. History - Past Medical History Cardiovascular: reports: None Respiratory: reports: None Neuro: reports: None Endocrine/Autoimmune: reports: None GI: reports: Hemorrhoids : reports: Other Psych: reports: None Musculoskeletal: reports: Fatigue Derm: reports: Other MRSA Hx?: Yes - Past Surgical History Ortho: reports: Carpal Tunnel surgery, Spine surgery /SHAKE SPLITTER: reports: Hysterectomy, Oophrectomy, Other - Family & Social History Family History: Mother: , Father: , Other family: Alive and Well (grandson with cancer) - Substance History Use: Uses substance without health or social issues: NONE - POLST Patient has POLST: Yes Meds/Allgy - Home Medications Home Medications: Ambulatory Orders Medication Instructions Recorded Confirmed oxyCODONE [Roxicodone] 10 - 15 mg PO Q3HR PRN 05/15/18 11/05/18 fentaNYL [Fentanyl 12mcg patch] 124 mcg TOP .Q3 DAYS 06/22/18 11/05/18 Ondansetron [Ondansetron Odt] 4 mg PO Q4H PRN 09/18/18 11/05/18 Prochlorperazine Maleate 10 mg PO Q6H PRN 09/18/18 11/05/18 [Compazine] Dexamethasone [Decadron] 4 mg PO DAILY 10/02/18 11/05/18 Senna [Senokot] 8.6 mg PO DAILY 11/05/18 11/05/18 - Allergies Allergies/Adverse Reactions: Allergies Allergy/AdvReac Type Severity Reaction Status Date / Time adhesive tape Allergy Intermediate Rash Verified 11/05/18 10:05 Sulfa (Sulfonamide Allergy Unknown Verified 06/05/18 15:19 Antibiotics) Prior Level of Functionality: Lives alone with limited home ADL's due to her pain Exam - Vital Signs Vital Signs: Vital Signs x48h Temp Pulse Resp BP Pulse Ox 11/05/18 12:27 36.7 C 85 16 106/51 L 94 11/05/18 12:00 12 - Physical Exam General Appearance: positive: No acute distress, Alert, Lethargic, Other (cachexia, thin and chronically ill-appearing) Eyes Bilateral: positive: Normal inspection, PERRL, EOMI ENT: positive: Pharynx nml Neck: positive: Nml inspection, Thyroid nml, No JVD, Trachea midline. negative: Thyromegaly Respiratory: positive: Chest non-tender, No respiratory distress, Breath sounds nml. negative: Wheezes, Rales, Rhonchi Cardiovascular: positive: Regular rate & rhythm, No murmur, No gallop Peripheral Pulses: positive: 2+ Abdomen: positive: No organomegaly, Tenderness (all quads), Other (distention noted). negative: Rebound Extremities: positive: Pedal edema (Left pedal edema), Other (RLE pain on flexion) Neurologic/Psychiatric: positive: Motor nml, Sensation nml, Disoriented to person, Disoriented to place, Depressed mood/affect Conclusion/Plan - Problem List (1) Intractable pain Conclusion/Plan: Hospice patient admitted for intractable pain to her pelvic region at the site of her fungating ulcerative mass which has high risk of infection and with exposed tissue. Urothelial cancer with mets to pelvic nodes and possible with carcinomatosis seen on clinical exam with distention and tenderness and ascites to her abdomen. Would treat with high dose narcotics as her morphine equivalent is approximately 300-400 mg /[address] her to receive a LABOURERS diluadid basal continuous dose of 5mg/hr, with pharmacy to consult on recommendation of interval lock out and max bolus and doses. Patient is somewhat somnolent and may need to go down to 3mg/hr as basal rate with methadone to be given now at 10 mg with BID dosing. Will defer off fentanyl for now. Would place on Methadone with anticipation of increasing this and titrating the dose up and downtitration of LABOURERS dilaudid to eventual wean. (2) Urothelial carcinoma Conclusion/Plan: Recurrent urothelial CA with now a fungating ulcerative pelvic mass with pelvic elena involvement, currently has urostomy with ostomy care to be ordered. Patient is inoperable and hence hospice has been continued. Would treat medically at this point. (3) Metastatic adenocarcinoma Conclusion/Plan: Stage 4 at minimum with pelvic elena involvement and suspected malignant ascites francisco javier peritoneal carcinomatosis. Continue hospice orders, pain mgmt, currently DNR with POLST in chart. (4) Pain management Conclusion/Plan: LABOURERS dilaudid with methadone and will not dispiense fentanyl patch or oxy for now. Goal is to uptitrate methadone to therapeutic level and downtitrate LABOURERS dilaudid to eventual wean. (5) Hx of pelvic mass Conclusion/Plan: Fungating ulcerative mass with exposed tissue that looks very friable and ertythematous, would need topical treatment as delineated by Hospice care orders: Premedicate prior to wound care. Cleanse the pubic wound gently with warm saline. Blot the wound and surrounding skin dry. Apply Cavalon durable barrier cream with light brushing technique to the immediate periwound skin. Crush 3-5 tabs of 250 mg flagyl to fine powder and sprinkle the powder over the entire wound making sure to cover all of the open skin. Cover the wound with pertolatum gauze to hold the powder in place. Also apply Cavalon Durable Barrier cream to the buttocks and perianal area. Secure a tabbed incontinent brief in place to secure the pertrolatum gauze dressing. (6) Advanced care planning/counseling discussion Conclusion/Plan: Patient has had advance care planning discussed and addressed by Hospice Service Dr. Leal, with goals of care, disease management, symptoms or pain control as well as disease trajectory and prognosis and remain s in Hospice care. (7) Lymphedema of both lower extremities Conclusion/Plan: Lasix may be added for diuresis benefit but has underlying electrolyte disturbances and may need to be deferred for now. (8) Chronic anemia Conclusion/Plan: Secondary to chronic blood loss with malignant extension, would watch and monitor for now. No current acute bleeding events noted. 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 - Lab Results Lab results reviewed: No - EKG Results EKG Interpreted Independently: No
[2018-11-05] MEDS ORDERED: metroNIDAZOLE 250 MG TABLET PO SCH (16:00)
[2018-11-05] MEDS: metroNIDAZOLE 250 MG TABLET PO SCH (17:12)
[2018-11-05] MEDS ORDERED: SODIUM CHLORIDE 0.9% IV PRN ×4 (19:00)
[2018-11-05] MEDS ORDERED: HYDROMORPHONE IV PRN ×4 (19:00)
[2018-11-05] MEDS: MIRTAZAPINE 15 MG TABLET PO SCH (21:47)
[2018-11-05] MEDS ORDERED: HYDROmorphone 1 MG/ML CARPUJECT ONE (22:07)
[2018-11-05] MEDS: HYDROmorphone 2 MG/ML VIAL IVP PRN (22:19)
[2018-11-05] MEDS ORDERED: SODIUM CHLORIDE FLUSH 0.9% 10 ML SYRINGE ONE (22:22)
[2018-11-06] MEDS: metroNIDAZOLE 250 MG TABLET PO SCH ×3 (00:55→16:20)
[2018-11-06] MEDS: MIN OIL/DIMETHICON/COCONUT OIL 92 GM TUBE TOP PRN ×2 (00:55→16:20)
[2018-11-06] MEDS: HYDROmorphone 2 MG/ML VIAL IVP PRN (01:35)
[2018-11-06] MEDS: SODIUM CHLORIDE 0.9% 1,000 ML IV SCH ×2 (04:36→18:15)
[2018-11-06] MEDS ORDERED: ENOXAPARIN 30 MG/0.3 ML SYRINGE SUBQ SCH (09:00)
[2018-11-06] MEDS ORDERED: HYDROmorphone 0.5 MG/0.5 ML SYRINGE IVP PRN (12:43)
[2018-11-06] MEDS: DEXAMETHASONE 4 MG TABLET PO SCH (13:39)
[2018-11-06] MEDS: METHADONE 5 MG TABLET PO SCH ×2 (13:39→21:01)
[2018-11-06] MEDS: MEGESTROL 400 MG/10 ML UDC PO SCH (13:39)
[2018-11-06] MEDS: SENNA 8.6 MG TABLET PO SCH (13:40)
--- NOTE | 2018-11-06 14:01 | PROVIDER PROGRESS NOTE ---
Subjective - Prog Note Date Prog Note Date: 11/06/18 Prog Note Time: 13:59 - Subjective Pt reports feeling: Improved (Patient has baseline dementia and is rambling And tangential.Patient confused but denies pain. Seems a bit uncomfortable when moved or touched. Unable to stay on track with any answer which is baseline for her.) Current Medications - Current Medications Current Medications: Active Medications Acetaminophen (Tylenol) 650 mg PO Q4HR PRN PRN Reason: Pain or Fever > 38C (100.4F) Carboxymethylcellulose (Refresh 1% Ophth Drops) 2 drops EACHEYE PRN PRN PRN Reason: Dry Eye Dexamethasone (Decadron) 4 mg PO DAILY COUNTS INCLUDE 234 BEDS AT THE [facility] Last Admin: 11/06/18 13:39 Dose: 4 mg Enoxaparin Sodium (Lovenox) 30 mg SUBQ DAILY COUNTS INCLUDE 234 BEDS AT THE [facility] Last Admin: 11/06/18 13:39 Dose: 30 mg Hydromorphone HCl (Dilaudid) 4 mg PO Q2HR PRN PRN Reason: Severe Pain Sodium Chloride (Normal Saline 0.9%) 1,000 mls @ 75 mls/hr IV .[id number] COUNTS INCLUDE 234 BEDS AT THE [facility] Last Admin: 11/06/18 04:36 Dose: 75 mls/hr Hydromorphone HCl 50 mg/ (Sodium Chloride) 250 mls @ 5 mls/hr IV .Q48H PRN; Protocol PRN Reason: PAIN Stop: 11/06/18 17:30 Last Admin: 11/06/18 00:35 Dose: 2.5 mg/hr, 12.5 mls/hr Loperamide HCl (Imodium) 2 mg PO PRN PRN PRN Reason: Diarrhea Lorazepam (Ativan) 0.5 mg SL Q1H PRN PRN Reason: See label comments Megestrol Acetate (Megace) 400 mg PO DAILY COUNTS INCLUDE 234 BEDS AT THE [facility] Last Admin: 11/06/18 13:39 Dose: 400 mg Methadone HCl () 10 mg PO BID COUNTS INCLUDE 234 BEDS AT THE [facility] Last Admin: 11/06/18 13:39 Dose: 10 mg Metronidazole (Flagyl) 750 mg PO Q8H COUNTS INCLUDE 234 BEDS AT THE [facility] Last Admin: 11/06/18 13:39 Dose: 750 mg Mineral Oil (Cavilon) 1 applic TOP PRN PRN PRN Reason: Skin Care Last Admin: 11/06/18 00:55 Dose: 1 applic Mirtazapine (Remeron) 7.5 mg PO QPM COUNTS INCLUDE 234 BEDS AT THE [facility] Last Admin: 11/05/18 21:47 Dose: 7.5 mg Ondansetron HCl (Zofran Odt) 4 mg PO Q4H PRN PRN Reason: Nausea / Vomiting Petrolatum (Vaseline) 5 gm TOP PRN PRN PRN Reason: Dry Lips Polyethylene Glycol (Miralax) 17 gm PO DAILY PRN PRN Reason: Constipation Prochlorperazine Maleate (Compazine) 10 mg PO Q6H PRN PRN Reason: Nausea / Vomiting Senna (Senokot) 8.6 mg PO DAILY COUNTS INCLUDE 234 BEDS AT THE [facility] Last Admin: 11/06/18 13:40 Dose: 8.6 mg Temazepam (Restoril) 15 - 30 mg PO QPM PRN PRN Reason: Insomnia oxyCODONE [Roxicodone] 10 - 15 mg PO Q3HR PRN 05/15/18 fentaNYL [Fentanyl 12mcg patch] 124 mcg TOP .Q3 DAYS 06/22/18 Ondansetron [Ondansetron Odt] 4 mg PO Q4H PRN 09/18/18 Prochlorperazine Maleate [Compazine] 10 mg PO Q6H PRN 09/18/18 Dexamethasone [Decadron] 4 mg PO DAILY 10/02/18 Senna [Senokot] 8.6 mg PO DAILY 11/05/18 Objective - Vital Signs/Intake & Output Reviewed Vital Signs: Yes Vital Signs: Vital Signs x48h Temp Pulse Pulse Resp BP Pulse Ox 11/06/18 11:54 12 11/06/18 08:11 37.0 C 70 14 94/49 L 97 11/06/18 08:00 36.6 C 70 12 93 11/06/18 07:00 12 Intake & Output: Intake & Output 11/03/18 11/04/18 11/05/18 11/06/18 23:59 23:59 23:59 23:59 Intake Total 418.75 1196 Output Total 375 350 Balance 43.75 846 - Objective General Appearance: positive: Alert, Anxious, Other (Baseline dementia. Chronically ill-appearing cachectic thin and malnourished) Eyes Bilateral: positive: Normal inspection, Conjunctivae nml ENT: positive: Pharynx nml, No signs of dehydration Neck: positive: Nml inspection, Thyroid nml, No JVD, Trachea midline. negative: Thyromegaly Respiratory: positive: Chest non-tender, No respiratory distress, Breath sounds nml Cardiovascular: positive: Regular rate & rhythm, No murmur, No gallop Peripheral Pulses: 2+ Dorsalis pedis (R), 2+ Dorsalis pedis (L) Abdomen: positive: Nml bowel sounds, Tenderness (All quadrants), Other (Ascites present and some tenderness on all quadrants). negative: Guarding Skin: positive: Color nml, No rash, Warm Extremities: positive: Non-tender, Full ROM, Nml appearance, Pedal edema (Minimal to 1+ pitting bilaterally left more than the right.), Other (Peripheral musculature with wasting as well as intercostal muscle Atrophy and pronounced bony protuberance) ABX Reporting Has patient been on IV antibiotics over the past 48 hours?: No Assessment/Plan - Problem List (1) Intractable pain Impression: Patient to continue with a INDUSTRIAL HEALTH ENGINEER Dilaudid pump with a basal rate to be down titrated to 1 mg/h and then converting her to oral Dilaudid please see hospice recommendations. In the meantime she will also get her methadone at 10 mg p.o. twice daily. Patient's hospice service has called to [facility] and with possible recommendations to transfer by tomorrow. Recommendations per hospiceshe did well on lower dose of Dilaudid but would recommend infusion at 1 mg/h and if doing well by early this afternoon recommend trying her on oral Dilaudid 4 mg every 2 hours as needed. She finally did get her dose of methadone yesterday and should get 2 doses today and hopefully with the combination her pain will be manageable. If she can be on an oral pain regimen will be able to move forward with placement. Hospice ELEMENTARY TEACHER was able to help family complete [employer] application yesterday. In reviewing patient's medication list would strongly recommend discontinuing enoxaparin, Megace, temazepam. There is certainly no indication for these in late stage hospice patient and the temazepam duplicates the Lorazepam she already has. Per Hospice service: Daughter Rick updated on patient status. I let her know patient information has been faxed to [facility] [place] and they will let me know this afternoon if she is accepted. She understands she will be charged $350 a day until/if her mom's Medicaid application is approved (faxed by this press writer today). Rick is also considering having her mom return home with 24 hour care, we discussed the cost, the care at home vs. care at hospice center, and ultimately what she thinks her mom would want most. I will update Rick after [facility] contacts me about admission. (2) Urothelial carcinoma Impression: Continue with pain control with no further workup indicated as patient has inoperable recurrence of metastatic urothelial carcinoma stage IV and beyond. (3) Metastatic adenocarcinoma Impression: Advanced stage IV urothelial carcinoma with metastatic spread with likely spread to abdomen ascites with peritoneal carcinomatosis likely on exam. To continue with current pain management protocol. Poor prognosis. (4) Pain management Impression: Continue with INDUSTRIAL HEALTH ENGINEER Dilaudid to down titrate as per hospice recommendations along with overlapping with methadone at 10 mg p.o. twice daily subsequently will be given Dilaudid 4 mg P.o. every 2 hours as needed for breakthrough pain. (5) Hx of pelvic mass Impression: No further workup as patient has recurrence of urothelial carcinoma with a fungating ulcerated mass that has exposure tissue and currently receiving wound care treatment as per hospice service. (6) Advanced care planning/counseling discussion Impression: Patient has already had prior discussions with hospice service Dr. Leal and continues on disease trajectory with current poor prognosis long-term. (7) Lymphedema of both lower extremities Impression: Patient has improved lymphedema bilaterally and the use of diuretics will not be used. (8) Chronic anemia Impression: Likely related to patient's cancerous process and no further workup needed. (9) Chronic hyponatremia Impression: Likely related to patient's metastatic disease process and no further workup as patient has no labs ordered. (10) Severe protein-calorie malnutrition Impression: Present on admission. Significant muscle wasting noted with a loss of subcutaneous fat and lower extremity edema. Nutritional intake of less than 50% of recommended intake for 2 weeks or more. Weight loss; patient meets criteria with 11% in 5 months. Bedridden status or otherwise significantly reduced functional capacity. Supplementation as well as optimizing nutritional status with dietitian consultation on board.
[2018-11-06] MEDS ORDERED: SODIUM CHLORIDE FLUSH 0.9% 10 ML SYRINGE ONE (14:06)
[2018-11-06] MEDS: HYDROmorphone 2 MG TABLET PO PRN (17:38)
[2018-11-06] MEDS: MIRTAZAPINE 15 MG TABLET PO SCH (21:01)
[2018-11-07] MEDS: metroNIDAZOLE 250 MG TABLET PO SCH ×3 (02:16→09:20)
[2018-11-07 06:03] VITALS: BP 150/88
[2018-11-07] MEDS: SODIUM CHLORIDE 0.9% 1,000 ML IV SCH (07:26)
[2018-11-07] MEDS: HYDROmorphone 2 MG TABLET PO PRN ×3 (08:27→15:38)
[2018-11-07] MEDS: DEXAMETHASONE 4 MG TABLET PO SCH (08:28)
[2018-11-07] MEDS: METHADONE 5 MG TABLET PO SCH (08:28)
[2018-11-07] MEDS: SENNA 8.6 MG TABLET PO SCH (08:29)
--- NOTE | 2018-11-07 13:58 | Discharge Plan ---
Discharge Plan Disposition: 50 Hospice/Home DC/Xfer Condition: Good Diet: Regular Activity Restrictions: Activity as Tolerated Shower Restrictions: No Driving Restrictions: Yes Weight Bearing: Full Weight Instruction Topics: Cancer Managing Pain Ch, Hospice Pain Management Additional Instructions or Follow Up instructions: Patient will be discharged to [facility] and continued on pain medication regimen as per Dr. Leal for which Dilaudid and methadone will be dispensed and fax. Ativan will also be given for anxiety related to patient's metastatic disease process and chronic pain. Patient to have follow-up with Dr. Leal as indicated. Patient to continue with other medical management as per hospice service. No Smoking: If you smoke, Please STOP! Call for help. Follow-up with: Dani Leal MD [Provider Admit Priv/Credential] - (As indicated)
--- NOTE | 2018-11-07 14:05 | DISCHARGE SUMMARY ---
"Discharge Summary Admit Date: 11/05/18 Discharge Date: 11/07/18 Discharging Provider: Dr. Canchola Primary Care Provider: Yelitza Nathan Code Status: Do Not Attempt Resuscitation Condition at Discharge: Good Discharge Disposition: 50 Hospice/Home DC/Xfer Discharge Facility Name: [facility] - DIAGNOSES Admission Diagnoses: (1) Intractable pain (2) Urothelial carcinoma (3) Metastatic adenocarcinoma (4) Pain management (5) Hx of pelvic mass; Fungating ulcerative mass (6) Advanced care planning/counseling discussion (7) Lymphedema of both lower extremities (8) Chronic anemia (9) Chronic hyponatremia Discharge Diagnoses with Status of Each Condition: (1) Intractable pain, Improved (2) Urothelial carcinoma, Progressive (3) 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 Progressive - HPI History of Present Illness: 78-year-old female residing by herself in her home who has diagnosis of urothelial carcinoma. This was diagnosed a few years ago, initially treated with ALICIA plus BSO, cystectomy and urethrectomy. She had a urostomy created which is located in the right lower quadrant. She subsequently underwent chemot herapy but fairly quickly began developing disease progression including lung metastases and discontinued chemotherapy. She was followed by palliative care for several months. She began to develop a fungating lesion on the mons pubis which has progressively enlarged, increasing abdominal discomfort and some abdominal distention. The lesion on the mons pubis has now extended outward into the groin and labia. She is also developed intense pain on the medial right ankle suspicious for metastatic involvement. She has been treated with fentanyl patches and oral oxycodone but pain management has been an increasing problem. It is also complicated by the fact that she lives by herself and suffers from moderately severe dementia although can present as fairly lucid and intact if one does not start carefully questioning her. Her son and daughter have been unavailable to be present for any extended period to assist with her and there have been many delays with attempting to get [employer] applications completed. There is been discussion about placement in a facility but that has not as of yet happened. Hospice LPN continues to work with family and patient. Over the past couple days her pain has been escalating despite increasing her fentanyl patch and oxycodone. This morning patient called nearly hysterical with severe pain. After some history from patient and daughter she apparently took 15 mg of oxycodone at about 7 PM and 9 PM last night but then slept and had had no pain medication until this morning. She is then taken two 15 mg oxycodone doses but was still writhing in pain. She states she had 3 bowel movements and thinks that may have helped. Hospice nurse arrived and over the next hour and a half titrated and additional 70 mg of oral morphine. When EMS arrived to transport patient to the hospital she was given an additional 10 mg IV morphine en route. Upon arrival in her hospital room she seemed much more comfortable but stated she still had an aching discomfort in the pelvic region. It appears that over about 2-1/2 hours she had an oral morphine equivalent dose of approximately 145 mg. She is still quite conversant and alert so clearly has not been overly sedated. Goals of carepatient and family goal was to keep her at home. There has been significant difficulty in getting son and daughter to understand that their mother needs 24-hour supervision to manage her medications. This has also limited some medication choices. Patient has POLST form stating DO NOT RESUSCITATE, DO NOT INTUBATE and no feeding tube. - CONSULTS | PROCEDURES Consultations: Dr Leal Procedures: None - HOSPITAL COURSE Hospital Course: This is a 78-year-old female residing by herself in her home who has diagnosis of urothelial carcinoma with metastatic spread and recurrence. Patient was admitted for intractable pelvic pain and right lower extremity pain. Patient with Stage 4 at minimum with pelvic elena involvement and suspected malignant ascites francisco javier peritoneal carcinomatosis. Continue hospice orders, pain mgmt, currently DNR with POLST in chart. [employer] dilaudid was started to initial basal rate of 5 mg/hr than takemn down to 3mg/hr, then down to 1 mg/hr with eventual wean off along with methadone 10 mg p.o. twice daily, That was also started with the anticipation and goal to eventually transition over to oral Dilaudid. Patient's fentanyl patch as well as oxycodone were deferred on admission. Fungating ulcerative mass with exposed tissue that looks very friable and ertythematous, would need topical treatment as delineated by Hospice care orders: Premedicate prior to wound care. Cleanse the pubic wound gently with warm saline. Blot the wound and surrounding skin dry. Apply Cavalon durable barrier cream with light brushing technique to the immediate periwound skin. Crush 3-5 tabs of 250 mg flagyl to fine powder and sprinkle the powder over the entire wound making sure to cover all of the open skin. Cover the wound with pertolatum gauze to hold the powder in place. Also apply Cavalon Durable Barrier cream to the buttocks and perianal area. Secure a tabbed incontinent brief in place to secure the pertrolatum gauze dressing. Patient has had advance care planning discussed and addressed by Hospice Service Dr. Leal, with goals of care, disease management, symptoms or pain control as well as disease trajectory and prognosis and remain s in Hospice care. Lasix was not needed for patient's chronic lymphedema which seems to be stable. Chronic anemia likely seen in the setting of metastatic disease, Secondary to chronic blood loss with malignant extension, would watch and monitor for now. No current acute bleeding events noted. 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 Patient was subsequently stable with intractable pain that was eventually transition over to oral Dilaudid with continuation of methadone 10 mg p.o. twice daily along with Ativan for metastatic disease related anxiety and Patient was accepted to [facility] for which patient will continue with current pain medication regimen. - ALLERGIES Allergies/Adverse Reactions: Allergies Allergy/AdvReac Type Severity Reaction Status Date / Time adhesive tape Allergy Intermediate Rash Verified 11/05/18 10:05 Sulfa (Sulfonamide Allergy Unknown Verified 06/05/18 15:19 Antibiotics) - MEDICATIONS Home Medications: Ambulatory Orders Medication Instructions Recorded Confirmed Ondansetron [Ondansetron Odt] 4 mg PO Q4H PRN 09/18/18 11/05/18 Prochlorperazine Maleate 10 mg PO Q6H PRN 09/18/18 11/05/18 [Compazine] Dexamethasone [Decadron] 4 mg PO DAILY 10/02/18 11/05/18 Senna [Senokot] 8.6 mg PO DAILY 11/05/18 11/05/18 HYDROmorphone [Dilaudid] 4 mg PO Q2HR PRN tablet 11/07/18 LORazepam [Ativan] 0.5 mg SL Q1H PRN tablet 11/07/18 Methadone 10 mg PO BID tablet 11/07/18 metroNIDAZOLE [Flagyl] 750 mg PO Q8H tablet 11/07/18 - PHYSICAL EXAM AT DISCHARGE General Appearance: positive: No acute distress, Alert, Other (Chronically ill- appearing, thin and cachectic) Eyes Bilateral: positive: Normal inspection, PERRL, EOMI ENT: positive: ENT inspection nml, Pharynx nml, No signs of dehydration Neck: positive: Nml inspection, Thyroid nml, No JVD, Trachea midline Respiratory: positive: Chest non-tender, No respiratory distress, Breath sounds nml Cardiovascular: positive: Regular rate & rhythm, No murmur, No gallop Peripheral Pulses: positive: 2+ Abdomen: positive: Non-tender, No organomegaly, Nml bowel sounds, No distention, Mass (Likely peritoneal carcinomatosis present.). negative: Tenderness Skin: positive: Color nml, No rash, Warm, Other (Erythematous fungating pelvic mass that it with exposed tissue.) Extremities: positive: Non-tender, Full ROM, Nml appearance Neurologic/Psychiatric: positive: Oriented x3, CN's nml (2-12) - QUALITY (Female Hip Fx Only) Was patient sent home on osteoporosis medication?: No - FOLLOW UP Follow Up: Dr. Leal to follow-up as indicated. Patient will have [facility] nter to be followed up with current pain medication regimen under hospice care to continue with current post hospital discharge orders per - TIME SPENT Time Spent in Discharge (Minutes): 35"
[2018-11-07] MEDS ORDERED: LORazepam 0.5 MG TABLET SL PRN (14:23)
== END 2018-11-07 16:45 | disposition hospice, home (50) | DRG 947 ==
LOC: MS2 09:41
PROVIDERS: ADMIT Family Medicine; ATTEND Family Medicine
DX: G89.3 Neoplasm related pain (acute) (chronic) (principal); E41 Nutritional marasmus; E43 Unspecified severe protein-calorie malnutrition; C68.9 Malignant neoplasm of urinary organ, unspecified; C79.2 Secondary malignant neoplasm of skin; C78.6 Secondary malignant neoplasm of retroperitoneum and peritoneum; E87.1 Hypo-osmolality and hyponatremia; Z68.1 Body mass index [BMI] 19.9 or less, adult; C77.5 Secondary and unspecified malignant neoplasm of intrapelvic lymph nodes; C78.00 Secondary malignant neoplasm of unspecified lung; F03.90 Unspecified dementia, unspecified severity, without behavioral disturbance, psychotic disturbance, mood disturbance, and anxiety; D50.0 Iron deficiency anemia secondary to blood loss (chronic); Z93.6 Other artificial openings of urinary tract status; I89.0 Lymphedema, not elsewhere classified; R53.83 Other fatigue; Z51.5 Encounter for palliative care; Z66 Do not resuscitate; Z79.891 Long term (current) use of opiate analgesic; Z79.52 Long term (current) use of systemic steroids; Z90.710 Acquired absence of both cervix and uterus; Z90.722 Acquired absence of ovaries, bilateral
CPT/HCPCS: A6250; A9270; J1170; J1650; J8540

== ENCOUNTER 2018-11-05 09:02 | Outpatient (CLI) | payer OTHER | END 2018-11-05 09:03 | disposition critical access hospital (66) | LOC: EMS 09:02 | PROVIDERS: ATTEND Surgery | DX: R52 Pain, unspecified (principal) | CPT/HCPCS: A0425; A0427 ==

== ENCOUNTER 2018-11-07 17:25 | Outpatient (CLI) | payer OTHER | END 2018-11-07 17:26 | disposition short-term general hospital (02) | LOC: EMS 17:25 | PROVIDERS: ATTEND Surgery | DX: Z51.5 Encounter for palliative care (principal); Z74.01 Bed confinement status | CPT/HCPCS: A0425; A0428 ==